=== PATIENT | female | born 1985 | race Caucasian/White ===

== ENCOUNTER 2016-07-08 07:46 | Outpatient (CLI) | payer MEDICAID | END 2016-07-08 07:47 | disposition home or self-care (01) | DX: Z36 Encounter for antenatal screening of mother (principal) ==

== ENCOUNTER 2016-07-31 09:52 | Emergency (ER) | payer MEDICAID ==
[2016-07-31] MEDS ORDERED: SODIUM CHLORIDE 0.9% 1,000 ML IV ONE (10:12)
[2016-07-31] MEDS ORDERED: ONDANSETRON 4 MG/2 ML VIAL IVP STA (10:12)
[2016-07-31] MEDS ORDERED: ONDANSETRON 4 MG/2 ML VIAL ONE (10:17)
[2016-07-31] MEDS ORDERED: POTASSIUM BICARB 25 MEQ TABLET PO STA (10:53)
[2016-07-31] MEDS ORDERED: POTASSIUM BICARB 25 MEQ TABLET PO ONE (10:59)
== END 2016-07-31 12:16 | disposition home or self-care (01) ==
DX: O99.612 Diseases of the digestive system complicating pregnancy, second trimester (principal); K52.9 Noninfective gastroenteritis and colitis, unspecified; O99.282 Endocrine, nutritional and metabolic diseases complicating pregnancy, second trimester; E86.0 Dehydration; E87.6 Hypokalemia; Z3A.22 22 weeks gestation of pregnancy
CPT/HCPCS: 36415; 80053; 81001; 83690; 85025; 96361; 96374; 99283; 99284; A9270

== ENCOUNTER 2016-08-15 11:33 | Outpatient (CLI) | payer MEDICAID | END 2016-08-15 11:34 | disposition home or self-care (01) | DX: Z36 Encounter for antenatal screening of mother (principal) ==

== ENCOUNTER 2016-08-27 09:24 | Outpatient (CLI) | payer MEDICAID | END 2016-08-27 09:25 | disposition home or self-care (01) | DX: Z36 Encounter for antenatal screening of mother (principal) ==

== ENCOUNTER 2016-09-10 08:47 | Outpatient (CLI) | payer MEDICAID | END 2016-09-10 08:48 | disposition home or self-care (01) | DX: O99.810 Abnormal glucose complicating pregnancy (principal) ==

== ENCOUNTER 2016-09-24 08:00 | Outpatient (CLI) | payer MEDICAID | END 2016-09-24 08:01 | disposition home or self-care (01) | DX: Z36 Encounter for antenatal screening of mother (principal) ==

== ENCOUNTER 2016-10-07 16:52 | Outpatient (CLI) | payer MEDICAID | END 2016-10-07 16:53 | disposition home or self-care (01) | LOC: LAB.R 16:52 | PROVIDERS: ATTEND Obstetrics & Gynecology | DX: N39.0 Urinary tract infection, site not specified (principal) | CPT/HCPCS: 87086 ==

== ENCOUNTER 2016-11-07 11:00 | Outpatient (CLI) | payer MEDICAID | END 2016-11-07 11:01 | disposition home or self-care (01) | LOC: LAB.R 11:00 | PROVIDERS: ATTEND Obstetrics & Gynecology | DX: Z36 Encounter for antenatal screening of mother (principal) | CPT/HCPCS: 87081 ==

== ENCOUNTER 2016-11-20 08:00 | Outpatient (CLI) | payer MEDICAID ==
[2016-11-21 15:19] LABS: BILIRUBIN,URINE NEGATIVE (NEGATIVE)
== END 2016-11-20 23:59 | disposition home or self-care (01) ==
LOC: LAB.R 08:00
PROVIDERS: ATTEND Obstetrics & Gynecology
DX: R82.99 Other abnormal findings in urine (principal)
CPT/HCPCS: 81001; 87086

== ENCOUNTER 2016-11-23 13:44 | Emergency (ER) | payer MEDICAID ==
[2016-11-23 13:50] VITALS: BP 127/80
[2016-11-23] MEDS ORDERED: AZITHROMYCIN 250 MG TABLET PO STA (14:13)
--- NOTE | 2016-11-23 14:15 | ED Physician Documentation ---
History of Present Illness - Stated complaint Stated Complaint: 38 WKS/FEMALE - Chief complaint Chief Complaint: General - History obtained from History obtained from: Patient - History of Present Illness Timing: Other (38 weeks with positive motion and no bleeding or cramping. She was exposed to chlamydia by the boyfriend who notified her last night.) Review of Systems Constitutional: denies: Fever, Chills GI: denies: Abdominal Pain, Nausea, Diarrhea : denies: Dysuria, Frequency PD PAST MEDICAL HISTORY - Past Medical History Cardiovascular: None Respiratory: None Neuro: None Endocrine/Autoimmune: None GI: None RADIO FREQUENCY ENGINEER: None : None HEENT: None Psych: None Musculoskeletal: None Derm: None - Past Surgical History Past Surgical History: Yes General: Appendectomy - Present Medications Home Medications: Ambulatory Orders Medication Instructions Recorded Confirmed Pnv No.122/Iron/Folic Acid 1 tab PO DAILY 11/23/16 11/23/16 [ Multi Tablet] - Allergies Allergies/Adverse Reactions: Allergies Allergy/AdvReac Type Severity Reaction Status Date / Time aspirin Allergy Severe Respiratory Verified 04/27/16 08:34 Penicillins Allergy Severe Rash Verified 04/27/16 08:34 - Social History Does the pt smoke?: No Smoking Status: Never smoker Does the pt drink ETOH?: No Does the pt have substance abuse?: Yes - Immunizations Immunizations are current?: Yes - POLST Patient has POLST: No PD ED PE NORMAL - Vitals Vital signs reviewed: Yes - General General: Alert and oriented X 3, No acute distress - Abdomen Abdomen: Soft, Non tender, Other (Gravid) - Neuro Neuro: Alert and oriented X 3, Normal speech - Psych Psych: Normal mood, Normal affect Results - Vitals Vitals: Vital Signs - 24 hr 11/23/16 13:47 Temperature 36.0 C L Heart Rate 88 Respiratory 18 Rate Blood Pressure 127/80 O2 Saturation 97 Oxygen O2 Source Room air Departure - Departure Disposition: 01 Home, Self Care Clinical Impression: Exposure to chlamydia Condition: Good Instructions: ED Chlamydia Female Follow-Up: Venus Connors DO [Provider Admit Priv/Credential] - Within 1 week
[2016-11-23] MEDS ORDERED: AZITHROMYCIN 250 MG TABLET PO ONE (14:16)
== END 2016-11-23 14:25 | disposition home or self-care (01) ==
LOC: ED 13:44
DX: O26.893 Other specified pregnancy related conditions, third trimester (principal); Z20.2 Contact with and (suspected) exposure to infections with a predominantly sexual mode of transmission; Z3A.38 38 weeks gestation of pregnancy
CPT/HCPCS: 87491; 87591; 99283; A9270

== ENCOUNTER 2016-11-30 16:29 | Inpatient (IN) | payer MEDICAID ==
[2016-11-30] MEDS ORDERED: SODIUM CHLORIDE FLUSH 0.9% 10 ML SYRINGE IVP PRN (17:06)
[2016-11-30] MEDS ORDERED: fentaNYL 100 MCG/2 ML VIAL IVP PRN (17:06)
--- NOTE | 2016-11-30 17:14 | HISTORY & PHYSICAL EXAMINATION ---
Admit History - Instructions [place]/Slash: -Left hand click circles element as positive or present. -Right hand click slashes element as negative or not present. - Visit Reason Visit Reason: Membranes rupture (Pt thinks that she ruptured at about 0130 early this AM. Dontae contractions.) - : 6 Parity: 5 Premature: 0 Ectopic: 0 : 0 Care: positive: [facility] Risk/History: positive: Labor induction (Pt has been ruptured for 16: 30 hours) Complications This : positive: Maternal drug use (Pt had a Positive UTOX for MJ 04/28/16) Smoking Status: Never smoker - Mother's Labs Mother's Blood Type: positive: O Mother's RH: positive: Positive GBS: positive: Group B Step Negative Rubella Status: positive: Immune - Other Maternal History Other Maternal History: Pt failed her 50 gm adn her 3 hour GTT was Positive fasting at 111. late inp her SO tested positive for Chmydia and recieved 1 gm Azithromycin. Meds/Allgy - Home Medications Home Medications: Ambulatory Orders Medication Instructions Recorded Confirmed Pnv No.122/Iron/Folic Acid 1 tab PO DAILY 11/23/16 11/23/16 [ Multi Tablet] - Allergies Allergies/Adverse Reactions: Allergies Allergy/AdvReac Type Severity Reaction Status Date / Time aspirin Allergy Severe Respiratory Verified 04/27/16 08:34 Penicillins Allergy Severe Rash Verified 04/27/16 08:34 Physical - Abdominal Exam Vital Signs: Temp Pulse Resp BP Pulse Ox 36.3 C L 85 17 130/83 H 97 11/30/16 16:47 11/30/16 16:47 11/30/16 16:47 11/30/16 16:47 11/30/16 16:47
[2016-11-30] MEDS ORDERED: OXYTOCIN/LACTATED RINGERS 250 ML IV SCH (18:00)
[2016-11-30] MEDS ORDERED: TERBUTALINE 1 MG/ML VIAL SUBQ SCH (18:00)
[2016-11-30 18:22] LABS: BASOPHILS # (AUTO) 0.1 10^3/uL (0.0-0.1); BASOPHILS % (AUTO) 0.4 %; EOSINOPHILS # (AUTO) 0.2 10^3/uL (0.0-0.7); EOSINOPHILS % (AUTO) 1.2 %; HCT - HEMATOCRIT 37.3 % (37.0-47.0); HGB - HEMOGLOBIN 12.3 g/dL (12.0-16.0); LYMPHOCYTES % (AUTO) 19.4 %; MEAN CORPUSCULAR HEMOGLOBIN 28.9 pg (27.0-31.0); MEAN CORPUSCULAR VOLUME 87.6 fL (81.0-99.0); MONOCYTES # (AUTO) 1.1 10^3/uL (0.0-1.0); MONOCYTES % (AUTO) 7.1 %; NEUTROPHILS % (AUTO) 71.9 %; RED BLOOD COUNT 4.26 10^6/uL (4.20-5.40); RED CELL DISTRIBUTION WIDTH 13.3 % (12.0-15.0); UNCORRECTED WHITE BLOOD COUNT 15.2 x10^3/uL; WHITE BLOOD COUNT 15.2 x10^3/uL (4.8-10.8)
[2016-11-30] MEDS: LACTATED RINGERS 1,000 ML IV SCH ×2 (18:40→22:59)
[2016-11-30] MEDS: SODIUM CHLORIDE FLUSH 0.9% 10 ML SYRINGE IVP SCH (18:41)
[2016-11-30] MEDS ORDERED: fent/BUPIV 2 MCG/0.125% 250 ML EP ONE (22:52)
[2016-11-30] MEDS ORDERED: ROPIVACAINE 0.2% PF 10 ML VIAL EPI ONE (23:00)
[2016-11-30] MEDS ORDERED: NALOXONE 0.4 MG/ML VIAL IVP PRN (23:28)
[2016-11-30] MEDS ORDERED: LACTATED RINGERS 500 ML IV SCH (23:28)
[2016-11-30] MEDS ORDERED: ePHEDrine 50 MG/ML AMP IVP PRN (23:28)
[2016-11-30] MEDS ORDERED: ONDANSETRON 4 MG/2 ML VIAL IVP PRN (23:28)
[2016-11-30] MEDS ORDERED: NALBUPHINE 20 MG/ML AMP IVP PRN (23:28)
[2016-11-30] MEDS ORDERED: diphenhydrAMINE INJ 50 MG/ML VIAL IVP PRN (23:28)
[2016-11-30] MEDS ORDERED: fent/BUPIV 2 MCG/0.125% 250 ML EP PRN (23:28)
[2016-11-30] MEDS ORDERED: METOCLOPRAMIDE 10 MG/2 ML VIAL IVP PRN (23:28)
--- NOTE | 2016-12-01 00:30 | PROVIDER PROGRESS NOTE ---
Labor Progress Note - Uterine Monitoring Contraction Intensity: positive: Moderate to strong Uterine Resting Tone: positive: Soft - Monitoring Monitor Mode: positive: External ultrasound Heart Rate Baseline: 130 Heart Rate Variability: positive: Moderate (6-25 bmp) Accelerations: positive: Present, 15x15 Decelerations: positive: None Strip Review: positive: Category I - Vaginal Exam Dilation (in cm): 5 Station: Ballotable Cervical Position: Midposition (Head is not well applied. TAUS showed head down adn a full bladder. will insert bello and leave in.)
--- NOTE | 2016-12-01 01:28 | PROVIDER PROGRESS NOTE ---
Labor Progress Note - Uterine Monitoring Uterine Monitoring Mode: positive: IUPC Contraction Frequency (min/apart): 2.5 Contraction Intensity: positive: Strong Uterine Resting Tone: positive: Soft Other Uterine Monitoring: IUPC palced 50 mvu per contraction. - Monitoring Monitor Mode: positive: External ultrasound Heart Rate Baseline: 135 Heart Rate Variability: positive: Moderate (6-25 bmp) Accelerations: positive: Absent Decelerations: positive: Early Strip Review: positive: Category I - Vaginal Exam Dilation (in cm): 5 Effacement (%): 80 Station: -2 Cervical Position: Midposition - Labor Progress Note Labor Progress Note/Additional Text: Unable to monitor contractions externaly. IUPC placed. Advance pit
[2016-12-01] MEDS: ONDANSETRON 4 MG/2 ML VIAL IVP PRN ×3 (01:39→10:04)
[2016-12-01] MEDS: LACTATED RINGERS 1,000 ML IV SCH (02:37)
[2016-12-01] MEDS ORDERED: TERBUTALINE 1 MG/ML VIAL SUBQ SCH (03:00)
[2016-12-01] MEDS ORDERED: ONDANSETRON 4 MG/2 ML VIAL IVP ONE (04:00)
[2016-12-01] MEDS ORDERED: LIDOCAINE 2%-EPI 1:100000 20 ML MDV SUBQ ONE (04:00)
[2016-12-01] MEDS ORDERED: MORPHINE PF 5 MG/10 ML AMP EP ONE (04:00)
[2016-12-01] MEDS ORDERED: fentaNYL 100 MCG/2 ML VIAL IVP ONE (04:00)
[2016-12-01] MEDS ORDERED: SODIUM BICARBONATE ABBOJECT 4.2% 5 MEQ/10 ML SYRINGE IVP ONE (04:00)
[2016-12-01] MEDS ORDERED: PROPOFOL 200 MG/20 ML VIAL IVP ONE (04:00)
[2016-12-01] MEDS ORDERED: SODIUM CHLORIDE 0.9% 10 ML VIAL IV ONE (04:00)
[2016-12-01] MEDS ORDERED: OXYTOCIN 10 UNIT/ML VIAL IV ONE (04:00)
[2016-12-01] MEDS ORDERED: ceFAZolin 1 GM VIAL IV ONE (04:00)
[2016-12-01] MEDS ORDERED: MIDAZOLAM 2 MG/2 ML VIAL IVP ONE (04:00)
[2016-12-01] MEDS ORDERED: LACTATED RINGERS 1,000 ML IV ONE (04:45)
[2016-12-01] MEDS ORDERED: OXYTOCIN/LACTATED RINGERS 250 ML IV SCH (04:57)
[2016-12-01] MEDS ORDERED: ONDANSETRON 4 MG/2 ML VIAL IVP PRN (04:57)
[2016-12-01] MEDS ORDERED: diphenhydrAMINE 25 MG CAPSULE PO PRN (04:57)
[2016-12-01] MEDS ORDERED: LACTATED RINGERS 1,000 ML IV SCH (05:00)
[2016-12-01] MEDS ORDERED: IBUPROFEN 800 MG TABLET PO SCH (05:00)
--- NOTE | 2016-12-01 05:06 | OPERATIVE REPORT ---
Operative Report - General Admit Date: 11/30/16 Procedure Date: 12/01/16 Planned Procedure: STAT C/S Pre-Op Diagnosis: 39.2 weeks, distress Post Op Diagnosis: tight nucal cord, LOP - Procedure Note Primary Surgeon: Lalo Moore MD Secondary Surgeon: Lorena GRIMM Anesthesia Provider: Jet hope Anesthesia Technique: Epidural, Moderate sedation Pathology: Placenta Estimated Blood Loss (in cc): 650 Complications: None
--- NOTE | 2016-12-01 05:28 | XRAY Preliminary Report ---
Exam: XR Abdomen 1 View IMPRESSION: No radiopaque foreign objects noted. RADIA The call report notification system was initiated by Dr. Terrance Ivory at 05:24 hrs on 12/01/16. The above findings were discussed with provider Ariela Edwards, Nurse, by Dr. Terrance Ivory at 05:26 hrs on 12/01/16. SITE ID: [id number]
--- NOTE | 2016-12-01 05:30 | XRAY Report ---
EXAM: ABDOMEN RADIOGRAPHY EXAM DATE: 12/01/2016 05:14 AM. CLINICAL HISTORY: EMERGENCY C SECTION SHARPS SURVEILLANCE. COMPARISON: None. TECHNIQUE: 1 view. FINDINGS: Bowel Gas Pattern: Shadow from the gravid uterus projects over the lower abdomen and pelvis. Other: Epidural catheter noted. No radiopaque foreign object projects over the abdomen or pelvis. IMPRESSION: No radiopaque foreign objects noted. RADIA The call report notification system was initiated by Dr. Terrance Ivory at 05:24 hrs on 12/01/16. The above findings were discussed with provider Nurse Liz, by Dr. Terrance Ivory at 05:26 hrs on 12/01/16. Referring Provider Line: [phone] SITE ID: [id number]
[2016-12-01] MEDS ORDERED: ACETAMINOPHEN 1,000 MG/100 ML 100 ML IV SCH (05:54)
[2016-12-01] MEDS: SODIUM CHLORIDE FLUSH 0.9% 10 ML SYRINGE IVP SCH (06:37)
[2016-12-01] MEDS: ACETAMINOPHEN 500 MG TABLET PO SCH ×3 (07:04→21:14)
[2016-12-01] MEDS: PROMETHAZINE 25 MG SUPP PR PRN ×2 (11:27→17:46)
[2016-12-01] MEDS: oxyCODONE 5 MG TABLET PO PRN ×2 (13:31→22:08)
[2016-12-02] MEDS: ACETAMINOPHEN 500 MG TABLET PO SCH ×3 (05:51→21:49)
[2016-12-02 06:11] LABS: LYMPHOCYTES % (AUTO) 15.7 %; MEAN PLATELET VOLUME 8.2 fL (7.9-10.8)
[2016-12-02 06:14] LABS: BASOPHILS % (AUTO) 0.3 %; EOSINOPHILS # (AUTO) 0.2 10^3/uL (0.0-0.7); EOSINOPHILS % (AUTO) 0.9 %; HCT - HEMATOCRIT 30.1 % (37.0-47.0); LYMPHOCYTES # (AUTO) 2.6 10^3/uL (1.5-3.5); MEAN CORPUSCULAR HEMOGLOBIN 29.2 pg (27.0-31.0); MEAN CORPUSCULAR HGB CONC 33.3 g/dL (32.0-36.0); MEAN CORPUSCULAR VOLUME 87.8 fL (81.0-99.0); MONOCYTES # (AUTO) 1.2 10^3/uL (0.0-1.0); MONOCYTES % (AUTO) 6.9 %; NEUTROPHILS # (AUTO) 12.7 10^3/uL (1.5-6.6); NEUTROPHILS % (AUTO) 76.2 %; RED BLOOD COUNT 3.43 10^6/uL (4.20-5.40); RED CELL DISTRIBUTION WIDTH 13.9 % (12.0-15.0); UNCORRECTED WHITE BLOOD COUNT 16.7 x10^3/uL; WHITE BLOOD COUNT 16.7 x10^3/uL (4.8-10.8)
[2016-12-02] MEDS: oxyCODONE 5 MG TABLET PO PRN ×4 (08:36→20:39)
--- NOTE | 2016-12-02 08:48 | PROVIDER PROGRESS NOTE ---
Subjective - General Admit Date: 11/30/16 Procedure Date: 12/01/16 Post Op Days: 1 Procedure Performed: PLTC/S - Review of Systems Wound/Incisions: positive: Healing well (no erythema Dressing removed) General: positive: No symptoms (Pain 5/10 but notes adiquit pain control. moving easly with smile on face. Pt is allergic to ASA but takes motrin with out any problems.) Objective - Patient Data Reviewed Vital Signs: Yes Vital Signs: Vital Signs x48h Temp Pulse Resp BP Pulse Ox 12/02/16 07:56 36.4 C L 64 18 124/78 99 12/02/16 04:03 36.7 C 62 18 120/78 99 Weight: Weight 11/30/16 12/01/16 12/02/16 23:59 23:59 23:59 Weight (kg) 95.708 kg Intake & Output: Intake and Output Totals x24h 11/30/16 12/01/16 12/02/16 23:59 23:59 23:59 Intake Total 1374 5679 Output Total 1475 Balance 1374 4204 - Lab Results Lab Results: 12/02/16 05:43 Other Lab Results: Lab Results x24hrs 12/02/16 Range/Units 05:43 WBC 16.7 H (4.8-10.8) x10^3/uL RBC 3.43 L (4.20-5.40) 10^6/uL Hgb 10.0 L (12.0-16.0) g/dL Hct 30.1 L (37.0-47.0) % MCV 87.8 (81.0-99.0) fL MCH 29.2 (27.0-31.0) pg MCHC 33.3 (32.0-36.0) g/dL RDW 13.9 (12.0-15.0) % Plt Count 214 (130-450) 10^3/uL MPV 8.2 (7.9-10.8) fL Neut # 12.7 H (1.5-6.6) 10^3/uL Lymph # 2.6 (1.5-3.5) 10^3/uL [place] # 1.2 H (0.0-1.0) 10^3/uL Eos # 0.2 (0.0-0.7) 10^3/uL Baso # 0.0 (0.0-0.1) 10^3/uL Absolute Nucleated RBC 0.01 x10^3/uL Nucleated RBCs 0.0 /100WBC - Current Medications Current Medications: Current Medications Generic Name Dose Route Start Last Admin Trade Name Freq PRN Reason Stop Dose Admin Acetaminophen 1,000 mg 12/01/16 05:00 12/02/16 05:51 Tylenol PO 1,000 mg Q8H JESSENIA Administration Metoclopramide HCl 10 mg 11/30/16 23:28 12/01/16 07:59 Reglan Inj IVP 10 mg Q6HR PRN Administration Nausea / Vomiting Oxycodone HCl 5 mg 12/01/16 04:57 12/02/16 08:36 Roxicodone PO 5 mg Q4HR PRN Administration PAIN Promethazine HCl 25 mg 12/01/16 10:50 12/01/16 17:46 Phenergan Supp SC 25 mg TID PRN Administration Nausea / Vomiting Sodium Chloride 10 ml 11/30/16 22:00 12/01/16 06:37 Normal Saline Flush 0.9% IVP Not Given Q8HR JESSENIA - Physical Exam Wound/Incisions: positive: Healing well General Appearance: positive: No acute distress, Alert Respiratory: positive: Chest non-tender, No respiratory distress, Breath sounds nml Cardiovascular: positive: Regular rate & rhythm, No murmur, No gallop Abdomen: positive: Non-tender, No organomegaly, Mass (U-2). negative: Guarding , Rebound Extremities: positive: Non-tender. negative: Calf tenderness, Rashida's sign/ cords Neurologic/Psychiatric: positive: Oriented x3 Impression/Plan - Problem List Problem List: S/P STAT LTC/S recovering well will start Colace and Motrin.
[2016-12-02] MEDS: SODIUM CHLORIDE FLUSH 0.9% 10 ML SYRINGE IVP SCH (09:07)
[2016-12-02] MEDS: DOCUSATE SODIUM 100 MG CAPSULE PO SCH ×2 (09:28→20:39)
[2016-12-02] MEDS: IBUPROFEN 800 MG TABLET PO PRN ×2 (09:28→17:47)
--- NOTE | 2016-12-02 09:55 | OPERATIVE REPORT ---
DATE OF SURGERY: 12/01/2016 00:00:00 PREOPERATIVE DIAGNOSIS: 1. A 39.2 weeks. 2. Prolonged rupture of membranes. 3. distress. POSTOPERATIVE DIAGNOSIS: 1. A 39.2 weeks. 2. Prolonged rupture of membranes. 3. distress. 4. Tight nuchal cord. 5. Left occiput posterior. NAME OF PROCEDURE: STAT Primary low transverse caesarean section. SURGEON: Lalo Moore MD. VERTICAL PUNCH OPERATOR: Lorena Radford CNM. ANESTHESIA: Epidural with IV sedation. ESTIMATED BLOOD LOSS: 650 mL. COMPLICATIONS: None. SPECIMENS TO PATHOLOGY: Placenta. PRESENTING HISTORY: The patient is a 31-year-old G6, P4 female who ruptured roughly 25-1/2 hours prior. She presented to Labor and Delivery on the evening of the . Because of her membranes being ruptured she was initiated with Pitocin, an epidural was placed. She was allowed to labor, but at roughly 7 cm she developed decelerations going down to the 90's and 70's. This did not respond to position change, knee chest, IV fluids, stopping the Pitocin or terbutaline. For this reason she was taken back for a stat . Verbal consent was obtained from the patient. However, a signed consent form was not. Risks and benefits were explained to the patient including those, but not limited to bleeding, infection, injury to pelvic organs which include the uterus , tubes, ovaries, bowel, bladder and ureters. She is aware of the potential for DVT with PE, as well as postoperative adhesions which could cause pain, bowel obstruction, infertility. PROCEDURE: The patient was taken to the operating room at which time she was placed in the supine position. Epidural was in place. She was prepped and draped in the usual fashion and a rapid time-out was performed. At this point a Pfannenstiel incision was carried down through the subcutaneous tissue to the fascia, the fascia incised transversely. At this point the patient was having difficulty with discomfort so IV sedation was initiated with propofol. The rectus was split along the midline, the peritoneum was entered high, care was taken to avoid injury to bowel or bladder. At this point a bladder flap was developed using both blunt and sharp dissection and a low transverse uterine incision was accomplished using #10 blade and bandage scissors. The head of the infant was noted to be right occiput posterior. Upon delivery there was a very tight nuchal cord which was difficult to reduce. This was reduced and the was delivered. The infant was handed to the accounting teacher who was standing by. At this point cord blood gas samples were attempted to be obtained. A segment of cord was set aside. The placenta was manually delivered. The uterus exterior was wrapped in moist lap and cleansed the interior portion with dry lap. The low transverse uterine incision was then closed using running locking suture of #0 Vicryl with an imbricating layer of 0 Vicryl. A moist lap was placed over this. The cul-de-sac was suctioned clear of any clot. The estimated blood loss was accomplished at this time and felt to be 650 mL. At this point the uterus is delivered back in the abdominal cavity, the gutters are irrigated and the incision was inspected. There was evidence of some bleeding along the midline so additional sutures of 0 Vicryl were placed with good results. There was no further bleeding. The peritoneum was closed utilizing 2-0 Vicryl and then the fascia was closed using #0 PDS running suture. This was irrigated and then the subcutaneous tissue was closed using 2- 0 Vicryl and the incision itself closed in 4-0 Monocryl subcuticular. This was then dressed with Mastisol, steri-strips, as well as an occlusive dressing. The patient tolerated procedure well. At this point an x-ray was obtained to rule out any retained instruments or sponges because these counts were not accomplished prior to initiating procedure. JOB #: [id number] EXT JOB #:[id number] JESSICA
[2016-12-03] MEDS: oxyCODONE 5 MG TABLET PO PRN ×3 (00:12→08:04)
[2016-12-03] MEDS: ACETAMINOPHEN 500 MG TABLET PO SCH (06:24)
[2016-12-03] MEDS: DOCUSATE SODIUM 100 MG CAPSULE PO SCH (10:45)
[2016-12-03] MEDS: IBUPROFEN 800 MG TABLET PO PRN (10:45)
--- NOTE | 2016-12-03 11:22 | PROVIDER PROGRESS NOTE ---
Subjective - General Admit Date: 11/30/16 Procedure Date: 12/01/16 Post Op Days: 2 Procedure Performed: PLTC/S - Review of Systems Wound/Incisions: positive: Healing well (no erythema) General: positive: No symptoms (Pain 3/10 but notes adiquit pain control. Moving easly with smile on face. Pt decided not to breast feed. Anticipates going home.) HEENT: positive: No symptoms Pulmonary: positive: No symptoms Cardiovascular: positive: No symptoms Gastrointestinal: positive: No symptoms Objective - Patient Data Reviewed Vital Signs: Yes Vital Signs: Vital Signs x48h Temp Pulse Resp BP BP Pulse Ox 12/03/16 07:58 36.6 C 72 17 108/76 98 12/03/16 03:47 36.8 C 67 16 122/80 98 Intake & Output: Intake and Output Totals x24h 12/01/16 12/02/16 12/03/16 23:59 23:59 23:59 Intake Total 5679 Output Total 1475 Balance 4204 - Lab Results Lab Results: 12/02/16 05:43 - Current Medications Current Medications: Current Medications Generic Name Dose Route Start Last Admin Trade Name Freq PRN Reason Stop Dose Admin Acetaminophen 1,000 mg 12/01/16 05:00 12/03/16 06:24 Tylenol PO 1,000 mg Q8H JESSENIA Administration Docusate Sodium 100 mg 12/02/16 09:00 12/03/16 10:45 Colace 100mg Capsule PO 100 mg DAILY JESSENIA Administration Ibuprofen 800 mg 12/02/16 08:45 12/03/16 10:45 Motrin PO 800 mg BID PRN Administration PAIN Metoclopramide HCl 10 mg 11/30/16 23:28 12/01/16 07:59 Reglan Inj IVP 10 mg Q6HR PRN Administration Nausea / Vomiting Oxycodone HCl 5 mg 12/01/16 04:57 12/03/16 08:04 Roxicodone PO 5 mg Q4HR PRN Administration PAIN Promethazine HCl 25 mg 12/01/16 10:50 12/01/16 17:46 Phenergan Supp [place] 25 mg TID PRN Administration Nausea / Vomiting Sodium Chloride 10 ml 11/30/16 22:00 12/02/16 09:07 Normal Saline Flush 0.9% IVP Not Given Q8HR JESSENIA - Physical Exam Wound/Incisions: positive: Healing well, Dressing dry and intact. negative: Erythema General Appearance: positive: No acute distress, Alert Respiratory: positive: Chest non-tender, No respiratory distress, Breath sounds nml Cardiovascular: positive: Regular rate & rhythm, No murmur, No gallop Abdomen: positive: Non-tender, Nml bowel sounds, Mass (U-3) Extremities: negative: Pedal edema, Calf tenderness, Rashida's sign/cords Neurologic/Psychiatric: positive: Oriented x3, Motor nml Impression/Plan - Problem List Problem List: POD #2 doing well Pt is not breast feeding. Discharge meds: Percocet 5/325 # 15 Motrin 800 mg Colace 100 mg Pt wants Mirena at 6 week visit RTC 1-2 weeks
--- NOTE | 2016-12-03 11:59 | Discharge Plan ---
Discharge Plan Disposition: Home, Self Care Condition: Good Diet: Regular Activity Restrictions: Pelvic rest Shower Restrictions: No Driving Restrictions: Yes (1 week) Weight Bearing: Full Weight No Smoking: If you smoke, Please STOP! Call for help. Follow-up with: Lalo Moore MD [Provider Admit Priv/Credential] -
[2016-12-03 12:07] VITALS: BP 153/94
--- NOTE | 2016-12-03 12:56 | Labor Flowsheet ---
Labor Flowsheet Datetime Report Generated by CPN: 12/03/2016 12:55 Datetime: 12/03/2016 12:07 VITAL SIGNS NBP Sys/Lisa/Mean (mmHg): 153 : 94 : 109 Pulse: 58 LaborFlag: Labor Datetime: 12/03/2016 12:06 Temperature (F): 97.5 Temperature (C): 36.4 Temperature (C): 36.4 Datetime: 12/02/2016 16:25 SpO2 (%): 99 Datetime: 12/01/2016 03:12 UTERINE ACTIVITY Monitor Mode: Internal Frequency (min): 2-4 Duration (sec): 30-90 Pattern: Normal: <= 5 Contractions in 10 Minutes Resting Tone (Palpate): Relaxed Resting Tone IUP (mmHg): 15 Intensity IUP (mmHg): 45 [place] Units (mmHg): 135 ASSESSMENT A Monitor Mode: Internal Scalp Electrode FHR Baseline Rate : 120 Variability: Moderate 6-25 bpm Accelerations: None Decelerations: Variable Category: Category II Patient Care Comments: left L_D unit for the OR via bed Anesthesia Comments: epidural remains in place Datetime: 12/01/2016 03:03 Plan of Care: C/S Delivery Datetime: 12/01/2016 03:02 Patient Position/Activity: Hands-Knees Datetime: 12/01/2016 03:00 PAIN Pain Scale: 0 Tocolytics: Terbutaline 0.25mg Subcutaneous Datetime: 12/01/2016 02:56 Monitor Interventions for FHR: FSE Applied Datetime: 12/01/2016 02:55 VAGINAL EXAM Dilatation (cm): 7.0 Effacement (%): 100 Station: 1 Exam by: Dr. Giem Datetime: 12/01/2016 02:49 MEDICATIONS Pitocin (milliunits): Discontinued Datetime: 12/01/2016 02:00 Oxygen Method: Room Air Datetime: 12/01/2016 01:59 Actions for Decelerations: Oxygen Applied Comments: 10L oxygen applied via non-rebreather mask Datetime: 12/01/2016 01:43 PATIENT CARE IV/Blood Work: IV Bolus Started Datetime: 12/01/2016 01:41 Antiemetics/Antacids: Zofran (mg) @ 4 Datetime: 12/01/2016 01:20 Monitor Interventions for UA: IUPC Inserted Datetime: 12/01/2016 01:18 COMMUNICATION Communication: Provider at Bedside Provider Notified (Name): Dr. Giem Datetime: 12/01/2016 01:16 Notification Reason: Other Communication Comments: requested provider place IUPC d/t poor contraction tracing Datetime: 12/01/2016 01:00 Quality: Moderate Anesthesia Level Check: T6- Xyphoid Datetime: 12/01/2016 00:45 Contraction Comments: per pt's report contractions roughly 5 minutes apart Datetime: 12/01/2016 00:30 I/O Interventions: Ignacio Cath Inserted Datetime: 11/30/2016 23:11 Epidural Procedure: Loading Dose Datetime: 11/30/2016 23:00 TEACHING Instructional Method: Verbal Pain Management: Epidural Datetime: 11/30/2016 22:58 PROCEDURE TIME OUT Procedure Verify: Correct Patient Identity; Correct Side and Site are Marked; Accurate Procedure Co nsent Form; Agreement on Procedure to be Done; Correct Patient Position; Relevant Images and Results are Properly Labeled and Displayed; Addressed Need to Administer Antibiotics or Fluids for Irrigation ; Safety Precautions Based on Patient History or Medication Use ANESTHESIA Anesthesia Plans: Epidural Epidural Positioning: Sitting Datetime: 11/30/2016 22:45 FHR Baseline Changes: No Baseline Change Pain Presence: Intermittent Pain Type: Cramping Pain Location: Abdomen Datetime: 11/30/2016 22:00 Respirations: 16 Pain Assessment Comments: pt continues to decline epidural at this time Datetime: 11/30/2016 21:50 Vital Sign Comments: pt denies blurred vision Datetime: 11/30/2016 21:49 Vaginal Bleeding: None Cervix, Consistency: Soft Cervix, Position: Posterior Datetime: 11/30/2016 21:10 Pain Relief Measures: Comfort Measures Pain Coping: Talking Through Contractions; Breathing Through Contractions Comfort Measures: Breathing/Relaxation Datetime: 11/30/2016 21:00 Pitocin Checklist: At Least 1 Acceleration of 15 bpm x 15 Seconds in 30 Minutes or Adequate Variabi lity; No More than 1 Late Deceleration Occurred in Past 30 Minutes; No More than 2 Variable Decelerat ions > 60 Seconds in Duration and decreasing >60 bpm in 30 minutes; No More than 5 Uterine Contractio ns in 10 Minutes for any 20 Minute Interval; Uterus Palpates Soft between Contractions Datetime: 11/30/2016 20:00 MATERNAL ASSESSMENT Level of Consciousness: Fully Conscious DTR's/Clonus: DTRs 2+; No Clonus Headache: Denies Breath Sounds, Left: Clear and Equal Breath Sounds, Right: Clear and Equal Datetime: 11/30/2016 18:30 Stage of : Labor
--- NOTE | 2016-12-06 03:39 | DISCHARGE SUMMARY ---
DATE OF ADMISSION: 11/30/2016 DATE OF DISCHARGE: 12/03/2016 ADMITTING DIAGNOSES 1. Term cyesis. 2. Prolonged ruptured membranes. DISCHARGE DIAGNOSES 1. Term cyesis. 2. Prolonged ruptured membranes. 3. decelerations. PROCEDURES 1. Pitocin induction. 2. Epidural. 3. Intrauterine pressure catheter. 4. scalp electrode. 5. Primary low-transverse section. IDENTIFICATION: The patient is a 31-year-old, G6, P5 female who presents with potentially ruptured m embranes at 1:30 in the morning on the . She did not present to Labor and Delivery until the aft ernoon about 1600 hours. At that point, she was noted to be frankly positive for nitrazine, as well as positive pooling. Because of the history of prolonged ruptured membranes, it was decided to initi ate Pitocin immediately. LABORATORIES: On admission, white count was 15.2 thousand, hemoglobin was 12.3, hematocrit 37, plate lets were 274. On the first day postoperatively, her hemoglobin had dropped to 10 with hematocrit of 30.1. Platelets were 214. White count was 16.7. HOSPITAL COURSE: The patient was admitted, and because of lack of active labor, Pitocin was initiate d. A pelvic examination was deferred, in that it was felt that this could potentially introduce bact eria. She did attain contractions. She had an epidural placed and was checked; at that point, she w as roughly 6 cm. She progressed to 7 cm but at this point developed decelerations that would go down to the 90s, as well as 70s. She was only 7 cm, and it was decided to proceed on to a primary low tr ansverse section. This was performed without incident. At delivery, a live was note d to be vertex with a nuchal cord, which was tight and very difficult to reduce. The remainder of th e progressed without incident. Her postoperative course has been doing well. Her diet is advanced, she is eating a regular diet. She is being discharged to home today on medications of: 1. Motrin. 2. Percocet. 3. Colace. She has been instructed to watch for signs of a breast infection, even though she will not be breastf eeding. She has also been instructed to remain at pelvic rest for the next 6 weeks. She is to follo w up in the clinic in 1-2 weeks, and then again at 6 weeks, at which time a Mirena will be placed for contraception. JOB #: [id number] EXT JOB #:[id number]
== END 2016-12-03 12:40 | disposition home or self-care (01) | DRG 765 ==
LOC: WFO 16:29 → OB 16:32 → WFO 17:16
PROVIDERS: ADMIT Obstetrics & Gynecology; ATTEND Obstetrics & Gynecology
PROC: 10D00Z1 Extraction of Products of Conception, Low, Open Approach (ICD-10-PCS; principal; 2016-12-01 03:30)
DX: O42.02 Full-term premature rupture of membranes, onset of labor within 24 hours of rupture (principal); O99.324 Drug use complicating childbirth; O98.32 Other infections with a predominantly sexual mode of transmission complicating childbirth; O76 Abnormality in fetal heart rate and rhythm complicating labor and delivery; O69.1XX0 Labor and delivery complicated by cord around neck, with compression, not applicable or unspecified; O64.0XX0 Obstructed labor due to incomplete rotation of fetal head, not applicable or unspecified; F12.90 Cannabis use, unspecified, uncomplicated; A56.8 Sexually transmitted chlamydial infection of other sites; Z3A.39 39 weeks gestation of pregnancy; Z37.0 Single live birth
CPT/HCPCS: 36415; 74000; 80306; 85025; 87491; 87591; 99213

== ENCOUNTER 2017-02-23 22:03 | Emergency (ER) | payer MEDICAID ==
[2017-02-23 22:22] VITALS: BP 159/87
[2017-02-23 22:26] LABS: BILIRUBIN,URINE NEGATIVE (NEGATIVE)
[2017-02-23 22:28] LABS: HCG UR QUAL NEGATIVE; UA w/ MICROSCOPIC CHARGE YES
[2017-02-23 22:42] LABS: UR CULTURE IF IND INDICATED; WBC,URINE >25 /HPF (0-5)
[2017-02-23] MEDS ORDERED: ACETAMINOPHEN 500 MG TABLET PO STA (22:50)
[2017-02-23] MEDS ORDERED: SULFAMETH/TRIMETH DS 800/160 MG TABLET PO STA (22:50)
[2017-02-23] MEDS ORDERED: ONDANSETRON ODT 4 MG TABLET TL STA (22:50)
[2017-02-23] MEDS ORDERED: PHENAZOPYRIDINE 100 MG TABLET PO STA (22:50)
--- NOTE | 2017-02-23 22:54 | ED Physician Documentation ---
PD HPI FEMALE - Stated complaint Stated Complaint: FEMALE - Chief complaint Chief Complaint: Abd Pain - History obtained from History obtained from: Patient - History of Present Illness Timing - onset: Yesterday Timing - details: Gradual onset, Still present Associated symptoms: Abdominal pain, Back pain, Urinary frequency, Hematuria Contributing factors: No: Similar symptoms before: Work up / diagnostics, Treatment Recently seen: Not recently seen - Additional information Additional information: Patient is a 31 year old female with a history of recurrent uti's who is presenting to the emergency department for dysuria, hematuria and left sided flank pain. Patient states that her symptoms have been going on for the last few days and has become progressively worse. Patient complains of mild fever and nausea but denies any vomiting and is able to drink water without any difficulty. Review of Systems Constitutional: reports: Fever, Chills. denies: Myalgias Eyes: denies: Decreased vision, Photophobia Ears: denies: Ear pain, Drainage/discharge Nose: denies: Congestion Throat: denies: Oral lesions / sores, Sore throat Cardiac: denies: Chest pain / pressure, Palpitations Respiratory: denies: Cough, Wheezing GI: reports: Abdominal Pain, Nausea. denies: Vomiting, Constipation, Diarrhea : reports: Frequency, Hematuria. denies: Vaginal bleeding Skin: denies: Rash, Lesions Musculoskeletal: reports: Back pain. 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 : None HEENT: None Psych: None Musculoskeletal: None Derm: None - Past Surgical History Past Surgical History: Yes General: Appendectomy - Present Medications Home Medications: Ambulatory Orders Medication Instructions Recorded Confirmed Pnv No.122/Iron/Folic Acid 1 tab PO DAILY 11/23/16 11/23/16 [ Multi Tablet] Ondansetron Odt [Zofran] 4 mg TL Q6H PRN #20 tablet 02/23/17 Phenazopyridine HCl [Pyridium] 200 mg PO TID PRN #6 tablet 02/23/17 Sulfamethox/Trimeth 800/160 1 each PO BID #14 tablet 02/23/17 [Bactrim Ds 800/160] - Allergies Allergies/Adverse Reactions: Allergies Allergy/AdvReac Type Severity Reaction Status Date / Time aspirin Allergy Severe Respiratory Verified 02/23/17 22:20 Penicillins Allergy Severe Rash Verified 02/23/17 22:20 - Social History Does the pt smoke?: No Smoking Status: Never smoker Does the pt drink ETOH?: No Does the pt have substance abuse?: Yes - Immunizations Immunizations are current?: Yes - POLST Patient has POLST: No PD ED PE NORMAL - Vitals Vital signs reviewed: Yes - General General: Alert and oriented X 3, No acute distress, Well developed/nourished - HEENT HEENT: Atraumatic, PERRL, Moist mucous membranes - Neck Neck: Supple, no meningeal sign - Cardiac Cardiac: RRR, No murmur - Respiratory Respiratory: No respiratory distress - Abdomen Abdomen: Soft, Non distended - Derm Derm: Normal color, Warm and dry, No rash - Extremities Extremities: No deformity, No tenderness to palpate - Neuro Neuro: Alert and oriented X 3, No motor deficit, No sensory deficit - Psych Psych: Normal mood, Normal affect PD ED PE EXPANDED - Back Back: CVA TTP left Results - Vitals Vitals: Vital Signs - 24 hr 02/23/17 22:15 Temperature 38.1 C H Heart Rate 90 Respiratory 17 Rate Blood Pressure 159/87 H O2 Saturation 96 Oxygen O2 Source Room air - Labs Labs: Laboratory Tests 02/23/17 22:00 Urine Color YELLOW Urine Clarity CLOUDY Urine pH 6.0 Ur Specific [place] 1.015 Urine Protein 100 H Urine Glucose (UA) NEGATIVE Urine Ketones NEGATIVE Urine Occult Blood LARGE H Urine Nitrite NEGATIVE Urine Bilirubin NEGATIVE Urine Urobilinogen 0.2 (NORMAL) Ur Leukocyte Esterase SMALL H Urine RBC 11-25 H Urine WBC >25 H Urine WBC Clumps PRESENT Ur Squamous Epith Cells FEW Squamous Urine Bacteria Few Ur Microscopic Review INDICATED Urine Culture Comments INDICATED Urine HCG, Qual NEGATIVE PD MEDICAL DECISION MAKING - ED course Complexity details: reviewed old records, reviewed results, re-evaluated patient , considered differential, d/w patient ED course: Patient was seen and examined at bedside. Patient's urine was collected. patient's findings were consistent with pyelonephritis. Patient was able to tolerate PO without difficulty and was appropriate for outpatient follow up and care. Departure - Departure Disposition: 01 Home, Self Care Clinical Impression: Pyelonephritis Condition: Good Instructions: Pyelonephritis Dc Follow-Up: primary,care provider [Other] - As Needed Prescriptions: Ondansetron Odt [Zofran] 4 mg TL Q6H PRN #20 tablet PRN Reason: Nausea / Vomiting Phenazopyridine HCl [Pyridium] 200 mg PO TID PRN #6 tablet PRN Reason: dysuria Sulfamethox/Trimeth 800/160 [Bactrim Ds 800/160] 1 each PO BID #14 tablet Comments: Your symptoms today are being caused by a kidney infection. You had your first dose of antibiotics and will need to be on it for two weeks. You should take the zofran as needed for nausea and make sure you stay well hydrated. You can take motrin or tylenol as needed for pain. You should also take yogurt or a probiotic to help reduce the GI side effects. You should follow up with your doctor this week. You should return to the emergency department at any time for new, worsening or uncontrollable symptoms.
[2017-02-23] MEDS ORDERED: ACETAMINOPHEN 500 MG TABLET PO ONE (23:06)
[2017-02-23] MEDS ORDERED: ONDANSETRON ODT 4 MG TABLET ONE (23:06)
[2017-02-23] MEDS ORDERED: SULFAMETH/TRIMETH DS 800/160 MG TABLET PO ONE (23:06)
[2017-02-23] MEDS ORDERED: PHENAZOPYRIDINE 100 MG TABLET PO ONE (23:07)
== END 2017-02-23 23:08 | disposition home or self-care (01) ==
LOC: ED 22:03
DX: N12 Tubulo-interstitial nephritis, not specified as acute or chronic (principal); Z87.440 Personal history of urinary (tract) infections
CPT/HCPCS: 81001; 81025; 87086; 87181; 99283; A9270; Q0162; 81003

== ENCOUNTER 2017-03-08 10:40 | Emergency (ER) | payer MEDICAID ==
--- NOTE | 2017-03-08 11:23 | ED Physician Documentation ---
PD HPI HEENT - Stated complaint Stated Complaint: SORE THROAT - Chief complaint Chief Complaint: Heent - History obtained from History obtained from: Patient - History of Present Illness Timing - onset: How many days ago (2-3) Timing - duration: Days (2-3) Timing - details: Abrupt onset, Still present Location: Throat. No: Right ear, Left ear, Nose Associated symptoms: Fever, Swollen nodes, Other (sore throat). 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 : None HEENT: None Psych: None Musculoskeletal: None Derm: None - Past Surgical History Past Surgical History: Yes General: Appendectomy - Present Medications Home Medications: Ambulatory Orders Medication Instructions Recorded Confirmed Pnv No.122/Iron/Folic Acid 1 tab PO DAILY 11/23/16 03/08/17 [ Multi Tablet] Sulfamethox/Trimeth 800/160 1 each PO BID #14 tablet 02/23/17 03/08/17 [Bactrim Ds 800/160] Cephalexin [Keflex] 500 mg PO TID #20 capsule 03/08/17 Dexamethasone [Decadron] 4 mg PO DAILY #5 tablet 03/08/17 HYDROcod/ACETAM 5/325 [[place] 5/325] 1 tab PO Q6H PRN #12 tablet 03/08/17 - Allergies Allergies/Adverse Reactions: Allergies Allergy/AdvReac Type Severity Reaction Status Date / Time aspirin Allergy Severe Respiratory Verified 03/08/17 10:46 Penicillins Allergy Severe Rash Verified 03/08/17 10:46 - Social History Does the pt smoke?: No Smoking Status: Never smoker Does the pt drink ETOH?: No Does the pt have substance abuse?: Yes - Immunizations Immunizations are current?: Yes - POLST Patient has POLST: No PD ED PE NORMAL - Vitals Vital signs reviewed: Yes - General General: Alert and oriented X 3, No acute distress, Well developed/nourished - HEENT HEENT: Ears normal, Moist mucous membranes. No: Pharynx benign (redness with swelling and exudate tonsillar area. No peritonsillar edema nor deviation. ) - Neck Neck: Supple, no meningeal sign, Other (anterior adenopathy) - Cardiac Cardiac: RRR, No murmur - Respiratory Respiratory: Clear bilaterally - Abdomen Abdomen: Soft, Non tender - Derm Derm: Normal color, Warm and dry, No rash Results - Vitals Vitals: Oxygen O2 Source Room air - Labs Labs: Microbiology 03/08/17 11:32 Group A Strep Throat Culture - Final Throat MIXED OROPHARYNGEAL BRIAN PRESENT. NO BETA STREP PRESENT IN CULTURE. Laboratory Tests 03/08/17 11:32 Group A Strep Rapid Negative PD MEDICAL DECISION MAKING - ED course Complexity details: considered differential (looks suspicious for bacterial and will treat empirically pending culture. ), d/w patient Departure - Departure Disposition: 01 Home, Self Care Clinical Impression: Pharyngitis Qualifiers: Pharyngitis/tonsillitis etiology: unspecified etiology Qualified Code(s): J02.9 - Acute pharyngitis, unspecified Condition: Stable Record reviewed to determine appropriate education?: Yes Instructions: ED Strep Pharyngitis Poss Prescriptions: Cephalexin [Keflex] 500 mg PO TID #20 capsule Dexamethasone [Decadron] 4 mg PO DAILY #5 tablet HYDROcod/ACETAM 5/325 [[place] 5/325] 1 tab PO Q6H PRN #12 tablet PRN Reason: Pain Comments: Your throat and symptoms suggest strep infection. We did do a throat culture and test for that. Will call you if it needs to be modified but right now we will treated with cephalexin 3 times a day for a week and Decadron for inflammation daily for 5 days. Drink lots of fluids. Add Tylenol or ibuprofen for pains and hydrocodone if needed for worse pain. Off work for 1-2 days and okay to resume work if feeling better at that time. Forms: Activity restrictions Discharge Date/Time: 03/08/17 12:13
[2017-03-08] MEDS ORDERED: cephALEXin 250 MG CAPSULE PO STA (11:32)
[2017-03-08] MEDS ORDERED: HYDROcod/ACETAM 5/325 MG TABLET PO STA (11:32)
[2017-03-08] MEDS ORDERED: DEXAMETHASONE 10 MG/ML VIAL PO STA (11:32)
[2017-03-08] MEDS ORDERED: ONDANSETRON ODT 4 MG TABLET TL STA (11:32)
[2017-03-08] MEDS ORDERED: ONDANSETRON ODT 4 MG TABLET ONE (11:43)
[2017-03-08 11:45] LABS: RAPID STREP SCREEN REAGENT QC YELLOW (YELLOW)
[2017-03-08] MEDS ORDERED: cephALEXin 250 MG CAPSULE PO ONE (11:48)
[2017-03-08] MEDS ORDERED: HYDROcod/ACETAM 5/325 MG TABLET ONE (11:49)
[2017-03-08] MEDS ORDERED: CHERRY SYRUP 10 ML UDC PO ONE (11:49)
[2017-03-08] MEDS ORDERED: DEXAMETHASONE 10 MG/ML VIAL ONE (11:49)
[2017-03-08 11:55] VITALS: BP 121/92
== END 2017-03-08 12:13 | disposition home or self-care (01) ==
LOC: ED 10:40
DX: J02.9 Acute pharyngitis, unspecified (principal)
CPT/HCPCS: 87070; 87430; 99283; A9270; Q0162

== ENCOUNTER 2017-05-14 13:23 | Emergency (ER) | payer MEDICAID ==
[2017-05-14 13:30] VITALS: BP 138/98
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
[2017-05-14] MEDS ORDERED: DEXAMETHASONE 10 MG/ML VIAL PO STA (14:43)
[2017-05-14] MEDS ORDERED: ALBUTEROL NEB 2.5 MG/3 ML INH STA (14:43)
[2017-05-14] MEDS ORDERED: HYDROcodone/ACETAM 7.5 MG/325 MG 15 ML UDC PO STA (14:43)
== END 2017-05-14 15:35 | disposition home or self-care (01) ==
LOC: ED 13:23
DX: J06.9 Acute upper respiratory infection, unspecified (principal); H66.001 Acute suppurative otitis media without spontaneous rupture of ear drum, right ear
CPT/HCPCS: 94640; 99283; A9270; J7613

== ENCOUNTER 2017-05-30 11:40 | Emergency (ER) | payer MEDICAID ==
[2017-05-30 12:03] LABS: BILIRUBIN,URINE NEGATIVE (NEGATIVE); GLUCOSE, URINE (UA) NEGATIVE (NEGATIVE); KETONES,URINE (UA) NEGATIVE (NEGATIVE); LEUKOCYTE ESTERASE, URINE SMALL (NEGATIVE); NITRITE,URINE NEGATIVE (NEGATIVE); OCCULT BLOOD,URINE LARGE (NEGATIVE); PROTEIN,URINE TRACE mg/dL (NEGATIVE); UROBILINOGEN,URINE 0.2 (NORMAL) E.U./dL (NORMAL)
[2017-05-30 12:06] LABS: CLARITY,URINE HAZY (CLEAR); HCG UR QUAL NEGATIVE
[2017-05-30 12:18] LABS: BACTERIA,URINE Moderate /HPF (None Seen); SQUAMOUS EPITHELIAL CELL,UR FEW Squamous (<= Few)
[2017-05-30] MEDS ORDERED: cefTRIAXone 1 GM VIAL IM STA (12:39)
[2017-05-30] MEDS ORDERED: LIDOCAINE 1% 2 ML VIAL SUBQ ONE (12:39)
[2017-05-30] MEDS ORDERED: ONDANSETRON 4 MG/2 ML VIAL IM STA (12:39)
[2017-05-30] MEDS ORDERED: MORPHINE 10 MG/ML VIAL IM STA (12:39)
--- NOTE | 2017-05-30 12:43 | ED Physician Documentation ---
PD HPI ABD PAIN - Stated complaint Stated Complaint: SIDE PX - Chief complaint Chief Complaint: Abd Pain - History obtained from History obtained from: Patient - History of Present Illness Timing - onset: Other (She developed flank pain, subjective fevers, vomiting and urinary frequency about 24 hours ago. This would be her fourth episode of pyelonephritis in the last 12 months.) Review of Systems Constitutional: reports: Fever, Myalgias Nose: denies: Rhinorrhea / runny nose Throat: denies: Sore throat GI: reports: Nausea, Vomiting. denies: Abdominal Pain, Constipation, Diarrhea : reports: Dysuria, Frequency. denies: Now EGA PD PAST MEDICAL HISTORY - Past Medical History Past Medical History: No Cardiovascular: None Respiratory: None Neuro: None Endocrine/Autoimmune: None GI: None INTERNAL CARVER: None : None HEENT: None Psych: None Musculoskeletal: None Derm: None - Past Surgical History Past Surgical History: Yes General: Appendectomy /INTERNAL CARVER: section - Present Medications Home Medications: Ambulatory Orders Medication Instructions Recorded Confirmed Albuterol Sulf [Ventolin Hfa 1 - 2 puffs INH Q4HR PRN #1 inhaler 05/14/17 Inhaler] HYDROcod/ACETAM 5/325 [[place] 5/325] 1 - 2 ea PO Q6H PRN #15 tablet 05/30/17 Ondansetron HCl [Zofran] 4 mg PO Q6H PRN #10 tablet 05/30/17 Sulfamethoxazole/Trimethoprim 1 each PO BID 7 Days tablet 05/30/17 [Sulfamethoxazole-Tmp Ds Tablet] - Allergies Allergies/Adverse Reactions: Allergies Allergy/AdvReac Type Severity Reaction Status Date / Time aspirin Allergy Severe Respiratory Verified 05/30/17 11:46 Penicillins Allergy Severe Rash Verified 05/30/17 11:46 - Social History Does the pt smoke?: No Smoking Status: Never smoker Does the pt drink ETOH?: No Does the pt have substance abuse?: Yes - Immunizations Immunizations are current?: Yes - POLST Patient has POLST: No PD ED PE NORMAL - Vitals Vital signs reviewed: Yes - General General: Alert and oriented X 3, No acute distress - Cardiac Cardiac: RRR, No murmur - Respiratory Respiratory: No respiratory distress, Clear bilaterally - Abdomen Abdomen: Soft, Non tender - Back Back: No CVA TTP - Neuro Neuro: Alert and oriented X 3, Normal speech Results - Vitals Vitals: Vital Signs - 24 hr 05/30/17 11:43 Temperature 36.6 C Heart Rate 108 H Respiratory 18 Rate Blood Pressure 124/98 H O2 Saturation 96 Oxygen O2 Source Room air - Labs Labs: Laboratory Tests 05/30/17 05/30/17 11:49 11:49 Urine Color YELLOW Urine Clarity HAZY Urine pH 6.0 Ur Specific [place] 1.010 1.010 Urine Protein TRACE Urine Glucose (UA) NEGATIVE Urine Ketones NEGATIVE Urine Occult Blood LARGE H Urine Nitrite NEGATIVE Urine Bilirubin NEGATIVE Urine Urobilinogen 0.2 (NORMAL) Ur Leukocyte Esterase SMALL H Urine RBC 6-10 H Urine WBC 11-25 H Ur Squamous Epith Cells FEW Squamous Urine Bacteria Moderate H Ur Microscopic Review INDICATED Urine Culture Comments INDICATED Urine HCG, Qual NEGATIVE PD MEDICAL DECISION MAKING - ED course ED course: She does not appear ill enough to need IV fluids etc., she is mildly tachycardic. She is administered Rocephin IM as well as morphine and Zofran here and passed an oral challenge. Departure - Departure Disposition: 01 Home, Self Care Clinical Impression: Pyelonephritis Condition: Good Record reviewed to determine appropriate education?: Yes Instructions: Pyelonephritis Dc Prescriptions: HYDROcod/ACETAM 5/325 [[place] 5/325] 1 - 2 ea PO Q6H PRN #15 tablet PRN Reason: Pain Ondansetron HCl [Zofran] 4 mg PO Q6H PRN #10 tablet PRN Reason: Nausea / Vomiting Sulfamethoxazole/Trimethoprim [Sulfamethoxazole-Tmp Ds Tablet] 1 each PO BID 7 Days tablet Comments: As discussed, given the frequency with which you are having kidney infections I recommend you follow-up with a urologist, the closest is in [place], the phone number is [phone]. We will culture your urine, the results should be done in 48-72 hours. If an antibiotic change is necessary we will call you. Return if worse in the meantime. Do not drink or drive while taking narcotic pain medication. Note that many narcotic pain relievers also contain Tylenol/acetaminophen. Please ensure that your total dose of acetaminophen from all sources does not exceed 3 g (3000 mg) per day. You may get constipated while on this medication. Take a stool softener such as Colace twice a day while you are on it. Also add an [id number] laxative such as senna or MiraLAX on any day that you do not have a bowel movement. If you received a narcotic pain medication or sedative while in the emergency department, do not drive for the next 24 hours.
[2017-05-30 13:18] VITALS: BP 122/82
== END 2017-05-30 13:17 | disposition home or self-care (01) ==
LOC: ED 11:40
DX: N12 Tubulo-interstitial nephritis, not specified as acute or chronic (principal)
CPT/HCPCS: 81001; 81003; 81025; 87086; 96372; 99283

== ENCOUNTER 2017-10-23 22:00 | Outpatient (CLI) | payer MEDICAID | END 2017-10-23 22:01 | disposition critical access hospital (66) | LOC: EMS 22:00 | PROVIDERS: ATTEND Surgery | DX: M54.2 Cervicalgia (principal); R42 Dizziness and giddiness; M25.511 Pain in right shoulder; M25.562 Pain in left knee; Y04.8XXA Assault by other bodily force, initial encounter | CPT/HCPCS: A0425; A0429 ==

== ENCOUNTER 2017-10-23 22:21 | Emergency (ER) | payer MEDICAID ==
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
--- NOTE | 2017-10-23 23:30 | XRAY Preliminary Report ---
Exam: XR SHOULDER 3 VIEW RT IMPRESSION: Normal shoulder radiography. [facility] SITE ID: [id number]
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
--- NOTE | 2017-10-23 23:31 | XRAY Preliminary Report ---
Exam: XR ANKLE 3 VIEW LT IMPRESSION: Normal ankle radiography. [facility] SITE ID: [id number]
--- NOTE | 2017-10-23 23:48 | CT Preliminary Report ---
Exam: CT CERVICAL SPINE W/O IMPRESSION: Normal cervical spine CT. [facility] SITE ID: [id number]
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
[2017-10-24] VITALS: BP 125/69
== END 2017-10-24 | disposition home or self-care (01) ==
LOC: EDUNIT# → ED 22:21
DX: S13.9XXA Sprain of joints and ligaments of unspecified parts of neck, initial encounter (principal); Y04.2XXA Assault by strike against or bumped into by another person, initial encounter
CPT/HCPCS: 72125; 99283

== ENCOUNTER 2018-01-11 09:16 | Emergency (ER) | payer MEDICAID ==
[2018-01-11 09:41] LABS: BILIRUBIN,URINE NEGATIVE (NEGATIVE); GLUCOSE, URINE (UA) NEGATIVE (NEGATIVE); KETONES,URINE (UA) NEGATIVE (NEGATIVE); LEUKOCYTE ESTERASE, URINE MODERATE (NEGATIVE); NITRITE,URINE POSITIVE (NEGATIVE); OCCULT BLOOD,URINE LARGE (NEGATIVE); PH,URINE 6.5 PH (5.0-7.5); PROTEIN,URINE 100 mg/dL (NEGATIVE); UROBILINOGEN,URINE 0.2 (NORMAL) E.U./dL (NORMAL)
[2018-01-11 09:44] LABS: CLARITY,URINE CLOUDY (CLEAR); HCG UR QUAL NEGATIVE
[2018-01-11 10:07] LABS: BACTERIA,URINE Many /HPF (None Seen); SQUAMOUS EPITHELIAL CELL,UR MOD Squamous (<= Few)
[2018-01-11] MEDS ORDERED: IBUPROFEN 600 MG TABLET PO STA (10:08)
[2018-01-11] MEDS ORDERED: ONDANSETRON ODT 4 MG TABLET TL STA (10:08)
[2018-01-11] MEDS ORDERED: SULFAMETH/TRIMETH DS 800/160 MG TABLET PO STA (10:08)
[2018-01-11 10:52] VITALS: BP 126/87
--- NOTE | 2018-01-11 11:26 | ED Physician Documentation ---
PD HPI FEMALE - Stated complaint Stated Complaint: BODY ACHES - Chief complaint Chief Complaint: General - History obtained from History obtained from: Patient - History of Present Illness Timing - onset: How many days ago (several) Timing - duration: Days Timing - details: Gradual onset, Still present, Waxing and waning Associated symptoms: Abdominal pain, Dysuria, Other (right flank pain). No: Fever Contributing factors: Sexually active. No: Exposed to STD Similar symptoms before: Diagnosis (UTIs and pyelo) Recently seen: Not recently seen Review of Systems Constitutional: reports: Chills, Myalgias. denies: Fever Nose: denies: Rhinorrhea / runny nose, Congestion Throat: denies: Sore throat Respiratory: denies: Dyspnea, Cough GI: reports: Abdominal Pain, Nausea. denies: Vomiting, Diarrhea : reports: Dysuria, Frequency. 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 - Present Medications Home Medications: Ambulatory Orders Medication Instructions Recorded Confirmed Albuterol Sulf [Ventolin Hfa 1 - 2 puffs INH Q4HR PRN #1 inhaler 05/14/17 Inhaler] HYDROcod/ACETAM 5/325 [[place] 5/325] 1 - 2 ea PO Q6H PRN #15 tablet 05/30/17 Ondansetron HCl [Zofran] 4 mg PO Q6H PRN #10 tablet 05/30/17 Sulfamethoxazole/Trimethoprim 1 each PO BID 7 Days tablet 05/30/17 [Sulfamethoxazole-Tmp Ds Tablet] Naproxen 375 mg PO BID #20 tablet 01/11/18 Ondansetron Odt [Zofran] 4 mg TL Q6H PRN #15 tablet 01/11/18 Sulfamethox/Trimeth 800/160 1 each PO BID #14 tablet 01/11/18 [Bactrim Ds 800/160] - Allergies Allergies/Adverse Reactions: Allergies Allergy/AdvReac Type Severity Reaction Status Date / Time aspirin Allergy Severe Respiratory Verified 10/23/17 22:40 Penicillins Allergy Severe Rash Verified 10/23/17 22:40 - Social History Does the pt smoke?: No Smoking Status: Never smoker Does the pt drink ETOH?: No Does the pt have substance abuse?: Yes - Immunizations Immunizations are current?: Yes - POLST Patient has POLST: No PD ED PE NORMAL - Vitals Vital signs reviewed: Yes - HEENT HEENT: Pharynx benign - Neck Neck: Supple, no meningeal sign, No adenopathy - Cardiac Cardiac: RRR, No murmur - Respiratory Respiratory: Clear bilaterally - Abdomen Abdomen: Normal bowel sounds, Soft, Non tender, Non distended - Female Female : Deferred - Rectal Rectal: Deferred - Back Back: No spinal TTP, Other (mild right CVA tenderness) - Derm Derm: Normal color, Warm and dry - Neuro Neuro: Alert and oriented X 3, No motor deficit, Normal speech Results - Vitals Vitals: Oxygen O2 Source Room air - Labs Labs: Laboratory Tests 01/11/18 09:30 Urine Color YELLOW Urine Clarity CLOUDY Urine pH 6.5 Ur Specific [place] 1.015 Urine Protein 100 H Urine Glucose (UA) NEGATIVE Urine Ketones NEGATIVE Urine Occult Blood LARGE H Urine Nitrite POSITIVE H Urine Bilirubin NEGATIVE Urine Urobilinogen 0.2 (NORMAL) Ur Leukocyte Esterase MODERATE H Urine RBC 6-10 H Urine WBC >25 H Ur Squamous Epith Cells MOD Squamous H Urine Bacteria Many H Ur Microscopic Review INDICATED Urine Culture Comments NOT INDICATED Urine HCG, Qual NEGATIVE PD MEDICAL DECISION MAKING - ED course Complexity details: reviewed old records (prior UTIs and pyelo episodes.), reviewed results (has positive UA. Does not appear septic/ill. ), considered differential, d/w patient - Sepsis Event Vital Signs: Oxygen O2 Source Room air Departure - Departure Disposition: 01 Home, Self Care Clinical Impression: UTI (lower urinary tract infection) Condition: Stable Record reviewed to determine appropriate education?: Yes Instructions: ED UTI Cystitis Female Prescriptions: Naproxen 375 mg PO BID #20 tablet Ondansetron Odt [Zofran] 4 mg TL Q6H PRN #15 tablet PRN Reason: Nausea / Vomiting Sulfamethox/Trimeth 800/160 [Bactrim Ds 800/160] 1 each PO BID #14 tablet Comments: Drink lots of fluids. Naproxen twice daily for pain and inflammation. Bactrim twice daily for infection. Ondansetron if needed for nausea. Add Tylenol if needed for pains. Recheck if not improving over the next couple of days. Rest off work for today and tomorrow. Forms: Activity restrictions Discharge Date/Time: 01/11/18 11:29
== END 2018-01-11 11:29 | disposition home or self-care (01) ==
LOC: ED 09:16
DX: N39.0 Urinary tract infection, site not specified (principal)
CPT/HCPCS: 81001; 81025; 99282; 99283; A9270; Q0162; 81003; 87086

== ENCOUNTER 2018-01-17 20:57 | Emergency (ER) | payer MEDICAID ==
--- NOTE | 2018-01-17 21:17 | ED Physician Documentation ---
PD HPI ABD PAIN - Stated complaint Stated Complaint: RT SIDE/BACK PX - Chief complaint Chief Complaint: Abd Pain - History obtained from History obtained from: Patient - History of Present Illness Timing - onset: How many weeks ago (1) Timing - details: Gradual onset, Waxing and waning Pain level max: 8 Pain level now: 6 Quality: Pain Location: RUQ Radiation: Right flank Improved by: Other (no ameliorating factors) Worsened by: Other (no exacerbating factors) Associated symptoms: Fever (subjective (chills, sweats, but did not take temperature at home)), Nausea, Other (urinary frequency, urgency). No: Vomiting , Diarrhea, Constipation, Dysuria Recently seen: Emergency Dept (6 days ago) - Additional information Additional information: presented to this ED 6 days ago for urinary urgency and frequency, UA at that time s/o UTI, prescribed Bactrim. She has been taking this as prescribed, but symptoms worsened, and she developed subjective fevers yesterday and today (did not take temperature, but shaking chills and diaphoresis, feels subjectively as though she has a fever). Also intermittent dyspnea, fatigue, myalgias. She has also developed increasingly frequent and severe right abdominal and right flank pain, waxing and waning without apparent exacerbating or ameliorating factors. Review of Systems Constitutional: reports: Fever (subjective), Chills, Myalgias, Fatigue, Sweats Eyes: reports: Reviewed and negative Ears: reports: Reviewed and negative Nose: reports: Reviewed and negative Throat: reports: Reviewed and negative Cardiac: reports: Reviewed and negative Respiratory: reports: Dyspnea. denies: Cough GI: reports: Abdominal Pain, Nausea. denies: Vomiting, Constipation, Diarrhea : reports: Frequency, Other (urinary urgency). 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 - Present Medications Home Medications: Ambulatory Orders Medication Instructions Recorded Confirmed Albuterol Sulf [Ventolin Hfa 1 - 2 puffs INH Q4HR PRN #1 inhaler 05/14/17 Inhaler] HYDROcod/ACETAM 5/325 [[place] 5/325] 1 - 2 ea PO Q6H PRN #15 tablet 05/30/17 Ondansetron HCl [Zofran] 4 mg PO Q6H PRN #10 tablet 05/30/17 Sulfamethoxazole/Trimethoprim 1 each PO BID 7 Days tablet 05/30/17 [Sulfamethoxazole-Tmp Ds Tablet] Naproxen 375 mg PO BID #20 tablet 01/11/18 Ondansetron Odt [Zofran] 4 mg TL Q6H PRN #15 tablet 01/11/18 Sulfamethox/Trimeth 800/160 1 each PO BID #14 tablet 01/11/18 [Bactrim Ds 800/160] - Allergies Allergies/Adverse Reactions: Allergies Allergy/AdvReac Type Severity Reaction Status Date / Time aspirin Allergy Severe Respiratory Verified 01/17/18 21:06 Penicillins Allergy Severe Rash Verified 01/17/18 21:06 - Social History Does the pt smoke?: No Smoking Status: Never smoker Does the pt drink ETOH?: No Does the pt have substance abuse?: Yes - Immunizations Immunizations are current?: Yes - POLST Patient has POLST: No PD ED PE NORMAL - Vitals Vital signs reviewed: Yes - General General: Alert and oriented X 3, No acute distress, Well developed/nourished - HEENT HEENT: Moist mucous membranes - Neck Neck: Supple, no meningeal sign - Cardiac Cardiac: No murmur - Respiratory Respiratory: No respiratory distress, Clear bilaterally - Abdomen Abdomen: Soft, Non distended, Other (mild RUQ and right hypogastric tenderness to palpation without guarding or rebound) - Derm Derm: Normal color, Warm and dry, No rash - Extremities Extremities: No edema PD ED PE EXPANDED - Cardiac Cardiac: Tachy, Regular Rhythm - Back Back: CVA TTP right Results - Vitals Vitals: Vital Signs - 24 hr 01/17/18 01/18/18 01/18/18 21:02 00:35 02:30 Temperature 37.1 C 37.2 C 37.3 C Heart Rate 108 H 96 90 Respiratory 20 18 16 Rate Blood Pressure 136/92 H 132/92 H 128/88 H O2 Saturation 100 98 97 Oxygen O2 Source Room air - Labs Labs: Laboratory Tests 01/17/18 01/17/18 01/17/18 21:10 21:10 21:10 WBC 23.9 H RBC 4.24 Hgb 11.8 L Hct 35.2 L MCV 83.0 MCH 27.7 MCHC 33.4 RDW 14.4 Plt Count 425 MPV 7.3 L Neut # (Auto) Not Reportable Lymph # (Auto) Not Reportable [place] # (Auto) Not Reportable Eos # (Auto) Not Reportable Baso # (Auto) Not Reportable Absolute Nucleated RBC Not Reportable Total Counted 100 Band Neuts % (Manual) 13 H Abnorm Lymph % (Manual) 0 Nucleated RBC % Not Reportable Neutrophils # (Manual) 20.6 H Lymphocytes # (Manual) 2.2 Monocytes # (Manual) 1.2 H Eosinophils # (Manual) 0.0 Basophils # (Manual) 0.0 Differential Comment MANUAL DIFFERENTIAL Platelet Estimate NORMAL (130-450,000) Platelet Morphology NORMAL APPEARANCE RBC Morph Micro Appear NORMAL APPEARANCE Sodium 133 L Potassium 3.1 L Chloride 99 L Carbon Dioxide 24 Anion Gap 10.0 BUN 17 Creatinine 1.8 H Estimated GFR (MDRD) 32 L Glucose 158 H Calcium 8.4 L Total Bilirubin 1.0 AST 49 H ALT 57 Alkaline Phosphatase 175 H Total Protein 7.7 Albumin 3.2 Globulin 4.5 H Albumin/Globulin Ratio 0.7 L Lipase 24 Urine Color Urine Clarity Urine pH Ur Specific [place] 1.020 Urine Protein Urine Glucose (UA) Urine Ketones Urine Occult Blood Urine Nitrite Urine Bilirubin Urine Urobilinogen Ur Leukocyte Esterase Urine RBC Urine WBC Ur Squamous Epith Cells Urine Bacteria Ur Microscopic Review Urine Culture Comments Urine HCG, Qual NEGATIVE 01/17/18 21:10 WBC RBC Hgb Hct MCV MCH MCHC RDW Plt Count MPV Neut # (Auto) Lymph # (Auto) [place] # (Auto) Eos # (Auto) Baso # (Auto) Absolute Nucleated RBC Total Counted Band Neuts % (Manual) Abnorm Lymph % (Manual) Nucleated RBC % Neutrophils # (Manual) Lymphocytes # (Manual) Monocytes # (Manual) Eosinophils # (Manual) Basophils # (Manual) Differential Comment Platelet Estimate Platelet Morphology RBC Morph Micro Appear Sodium Potassium Chloride Carbon Dioxide Anion Gap BUN Creatinine Estimated GFR (MDRD) Glucose Calcium Total Bilirubin AST ALT Alkaline Phosphatase Total Protein Albumin Globulin Albumin/Globulin Ratio Lipase Urine Color YELLOW Urine Clarity CLOUDY Urine pH 6.0 Ur Specific [place] 1.020 Urine Protein 100 H Urine Glucose (UA) NEGATIVE Urine Ketones NEGATIVE Urine Occult Blood LARGE H Urine Nitrite NEGATIVE Urine Bilirubin NEGATIVE Urine Urobilinogen 4 H Ur Leukocyte Esterase LARGE H Urine RBC 6-10 H Urine WBC >25 H Ur Squamous Epith Cells RARE Squamous Urine Bacteria Moderate H Ur Microscopic Review INDICATED Urine Culture Comments INDICATED Urine HCG, Qual - Rads (name of study) CT A/P Radiology: Prelim report reviewed, See rad report PD MEDICAL DECISION MAKING - ED course Complexity details: reviewed old records, reviewed results, re-evaluated patient , considered differential, d/w patient ED course: Unfortunately, previous UA had too many squamous cells for lab to culture the sample. UA today s/o ongoing UTI. She has substantial leukocytosis on CBC. Creatinine elevated at 1.8 (several previous results on records, all normal until tonight) . CT reveals large UPJ calculus. D/W Dr. Thompson (on-call urology at [facility]), agrees with transfer to [facility], recommends admit to hospitalist. D/W Dr. Akins, accepts transfer to [facility]. Patient given Rocephin during ED stay. Her allergy to PCN is rash, which sounds mild per patient's description. - Sepsis Event Vital Signs: Vital Signs - 24 hr 01/17/18 01/18/18 01/18/18 21:02 00:35 02:30 Temperature 37.1 C 37.2 C 37.3 C Heart Rate 108 H 96 90 Respiratory 20 18 16 Rate Blood Pressure 136/92 H 132/92 H 128/88 H O2 Saturation 100 98 97 Oxygen O2 Source Room air Departure - Departure Disposition: 02 Transfer Acute Care Hosp Clinical Impression: Pyelonephritis, Ureterolithiasis Condition: Stable Discharge Date/Time: 01/18/18 02:42
[2018-01-17 21:28] LABS: BASOPHILS % (AUTO) 0.5 %; BILIRUBIN,URINE NEGATIVE (NEGATIVE); EOSINOPHILS % (AUTO) 0.3 %; GLUCOSE, URINE (UA) NEGATIVE (NEGATIVE); HGB - HEMOGLOBIN 11.8 g/dL (12.0-16.0); KETONES,URINE (UA) NEGATIVE (NEGATIVE); LEUKOCYTE ESTERASE, URINE LARGE (NEGATIVE); LYMPHOCYTES % (AUTO) 6.1 %; MEAN CORPUSCULAR HEMOGLOBIN 27.7 pg (27.0-31.0); MEAN CORPUSCULAR HGB CONC 33.4 g/dL (32.0-36.0); MEAN PLATELET VOLUME 7.3 fL (7.9-10.8); MONOCYTES % (AUTO) 9.7 %; NEUTROPHILS % (AUTO) 83.4 %; NITRITE,URINE NEGATIVE (NEGATIVE); OCCULT BLOOD,URINE LARGE (NEGATIVE); PLT - PLATELET COUNT 425 10^3/uL (130-450); PROTEIN,URINE 100 mg/dL (NEGATIVE); RED BLOOD COUNT 4.24 10^6/uL (4.20-5.40); RED CELL DISTRIBUTION WIDTH 14.4 % (12.0-15.0); UROBILINOGEN,URINE 4 E.U./dL (NORMAL); WHITE BLOOD COUNT 23.9 x10^3/uL (4.8-10.8)
[2018-01-17 21:32] LABS: CLARITY,URINE CLOUDY (CLEAR)
[2018-01-17 21:33] LABS: HCG UR QUAL NEGATIVE
[2018-01-17 21:34] LABS: ABNORMAL LYMPHS % (MANUAL) 0 %
[2018-01-17 21:37] LABS: BACTERIA,URINE Moderate /HPF (None Seen); SQUAMOUS EPITHELIAL CELL,UR RARE Squamous (<= Few)
[2018-01-17 21:38] LABS: ALBUMIN 3.2 g/dL (3.2-5.5); ALBUMIN/GLOBULIN RATIO 0.7 (1.0-2.2); CALCIUM 8.4 mg/dL (8.5-10.3); CREATININE 1.8 mg/dL (0.4-1.0); TOTAL PROTEIN 7.7 g/dL (6.7-8.2)
[2018-01-17] MEDS ORDERED: ONDANSETRON 4 MG/2 ML VIAL IVP STA (21:44)
[2018-01-17] MEDS ORDERED: SODIUM CHLORIDE 0.9% 1,000 ML IV STA ×2 (21:44→22:32)
[2018-01-17] MEDS ORDERED: KETOROLAC 60 MG/2 ML VIAL IVP STA (21:44)
[2018-01-17 21:50] LABS: BAND NEUTROPHILS % (MANUAL) 13 %; LYMPHOCYTES # (MANUAL) 2.2 10^3/uL (1.5-3.5); LYMPHOCYTES % (MANUAL) 9 %; MONOCYTES # (MANUAL) 1.2 10^3/uL (0.0-1.0); NEUTROPHILS # (MANUAL) 20.6 10^3/uL (1.5-6.6); NEUTROPHILS % (MANUAL) 73 %
[2018-01-17 21:51] LABS: DIFFERENTIAL COMMENT MANUAL DIFFERENTIAL; PLATELET ESTIMATE, MANUAL NORMAL (130-450,000) (NORMAL); PLATELET MORPHOLOGY NORMAL APPEARANCE (NORMAL); RBC MORPHOLOGY (MULTIPLE) NORMAL APPEARANCE (NORMAL)
[2018-01-17] MEDS ORDERED: cefTRIAXone 1 GM in SODIUM CHLORIDE 0.9% MINIBAG 100 ML IV STA (22:32)
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
[2018-01-17] MEDS ORDERED: MORPHINE 2 MG/ML CARPUJECT IVP STA (23:22)
[2018-01-18] MEDS ORDERED: SODIUM CHLORIDE 0.9% 1,000 ML IV STA (02:03)
[2018-01-18 02:32] VITALS: BP 128/88
== END 2018-01-18 02:42 | disposition short-term general hospital (02) ==
LOC: ED 20:57
DX: N20.1 Calculus of ureter (principal)
CPT/HCPCS: 36415; 74176; 80053; 81001; 81003; 81025; 83690; 85025; 87086; 87181; 96361; 96365; 96375; 99284; 99285

== ENCOUNTER 2018-01-18 02:33 | Outpatient (CLI) | payer MEDICAID | END 2018-01-18 02:34 | disposition short-term general hospital (02) | LOC: EMS 02:33 | PROVIDERS: ATTEND Surgery | DX: N12 Tubulo-interstitial nephritis, not specified as acute or chronic (principal); N20.1 Calculus of ureter ==

== ENCOUNTER 2018-03-28 19:08 | Emergency (ER) | payer MEDICAID ==
[2018-03-28 19:28] LABS: BILIRUBIN,URINE NEGATIVE (NEGATIVE); GLUCOSE, URINE (UA) NEGATIVE (NEGATIVE); KETONES,URINE (UA) NEGATIVE (NEGATIVE); LEUKOCYTE ESTERASE, URINE TRACE (NEGATIVE); NITRITE,URINE NEGATIVE (NEGATIVE); OCCULT BLOOD,URINE LARGE (NEGATIVE); PROTEIN,URINE NEGATIVE (NEGATIVE); UROBILINOGEN,URINE 0.2 (NORMAL) E.U./dL (NORMAL)
[2018-03-28 19:30] LABS: CLARITY,URINE CLEAR (CLEAR); HCG UR QUAL NEGATIVE
[2018-03-28 19:39] LABS: BACTERIA,URINE Few /HPF (None Seen); SQUAMOUS EPITHELIAL CELL,UR MANY Squamous (<= Few); WBC CLUMPS,URINE PRESENT
[2018-03-28 19:57] LABS: BASOPHILS # (AUTO) 0.1 10^3/uL (0.0-0.1); BASOPHILS % (AUTO) 0.3 %; EOSINOPHILS # (AUTO) 0.2 10^3/uL (0.0-0.7); EOSINOPHILS % (AUTO) 1.2 %; LYMPHOCYTES # (AUTO) 1.7 10^3/uL (1.5-3.5); LYMPHOCYTES % (AUTO) 10.8 %; MEAN CORPUSCULAR HEMOGLOBIN 27.5 pg (27.0-31.0); MEAN CORPUSCULAR HGB CONC 32.2 g/dL (32.0-36.0); MEAN CORPUSCULAR VOLUME 85.3 fL (81.0-99.0); MEAN PLATELET VOLUME 7.1 fL (7.9-10.8); MONOCYTES # (AUTO) 1.1 10^3/uL (0.0-1.0); MONOCYTES % (AUTO) 7.1 %; NEUTROPHILS # (AUTO) 12.9 10^3/uL (1.5-6.6); NEUTROPHILS % (AUTO) 80.6 %; PLT - PLATELET COUNT 386 10^3/uL (130-450); RED BLOOD COUNT 4.73 10^6/uL (4.20-5.40); RED CELL DISTRIBUTION WIDTH 15.1 % (12.0-15.0)
[2018-03-28 20:12] LABS: ALBUMIN 3.9 g/dL (3.2-5.5); ALBUMIN/GLOBULIN RATIO 1.1 (1.0-2.2); BILIRUBIN,TOTAL 0.4 mg/dL (0.2-1.0); CALCIUM 9.1 mg/dL (8.5-10.3); CREATININE 0.8 mg/dL (0.4-1.0); TOTAL PROTEIN 7.5 g/dL (6.7-8.2)
[2018-03-28] MEDS ORDERED: fentaNYL 100 MCG/2 ML VIAL IVP STA (21:07)
[2018-03-28] MEDS ORDERED: ONDANSETRON 4 MG/2 ML VIAL IVP STA (21:08)
[2018-03-28] MEDS ORDERED: KETOROLAC 60 MG/2 ML VIAL IVP STA (21:08)
--- NOTE | 2018-03-28 22:26 | CT Report ---
Reason: Right flank pain, with hematuria; h/o kidney stone Procedure Date: 03/28/2018 Accession Number: [id number] / [id number] Procedure: CT - Abdomen/Pelvis W/O CPT Code: FULL RESULT: EXAM: CT ABDOMEN AND PELVIS (CT KUB) EXAM DATE: 03/28/2018 10:07 PM. CLINICAL HISTORY: Right flank pain, with hematuria; h/o kidney stone. COMPARISONS: ABDOMEN/PELVIS W/O 01/17/2018 10:40 PM. TECHNIQUE: Routine axial helical CT imaging was performed through the abdomen and pelvis without IV contrast. Reconstructions: Coronal and sagittal. In accordance with CT protocol optimization, one or more of the following dose reduction techniques were utilized for this exam: automated exposure control, adjustment of mA and/or KV based on patient size, or use of iterative reconstructive technique. FINDINGS: Lung Bases: Unremarkable. Right Kidney/Ureter: Resolution of previously seen right hydronephrosis. 2 tiny right renal calculi. Left Kidney/Ureter: Stable indeterminate nodule arising from the lower pole of the left kidney. Stable tiny nonobstructing calculi and likely left nephrocalcinosis. Other Solid Organs: Noncontrast images of the solid organs are grossly unremarkable. Gallbladder/Bile Ducts: Unremarkable. Peritoneal Cavity: Postoperative changes of appendectomy. No bowel dilatation, free of atelectasis, or free fluid. Pelvic Organs: IUD in the pelvis. No pelvic adenopathy or free fluid. Vasculature: Unremarkable. Other: None. IMPRESSION: Resolution of previously seen right hydronephrosis. Tiny nonobstructing bilateral calculi. Stable indeterminate nodule arising from the lower pole of the left kidney, and likely left nephrocalcinosis. [facility]
--- NOTE | 2018-03-28 22:32 | ED Physician Documentation ---
PD HPI ABD PAIN - Stated complaint Stated Complaint: BACK/ABD PX/NAUSEA - Chief complaint Chief Complaint: Abd Pain - History obtained from History obtained from: Patient - History of Present Illness Timing - onset: Yesterday Timing - duration: Days (2) Timing - details: Gradual onset Quality: Pain Location: Other (right flank) Associated symptoms: Nausea, Vomiting. No: Fever, Diarrhea, Dysuria Similar symptoms before: Diagnosis (History of similar symptoms in the past with kidney stones and with pyelonephritis. She underwent removal of right kidney stones in January 2018.) - Additional information Additional information: The patient is a 32-year-old female who presents with right-sided abdominal pain radiating to the right flank. The pain started yesterday and is worse today. She reports associated nausea and vomiting. She denies fever or dysuria. She is currently on her menstrual period. She reports history of similar pain with kidney stones for which she underwent surgical removal in January 2018. She also has history of recurrent pyelonephritis. Review of Systems Constitutional: denies: Fever Nose: denies: Congestion Throat: denies: Sore throat Cardiac: denies: Chest pain / pressure Respiratory: denies: Dyspnea, Cough GI: reports: Abdominal Pain, Nausea, Vomiting. denies: Diarrhea : reports: LMP (current). denies: Dysuria, Discharge Skin: denies: Rash Musculoskeletal: reports: Back pain (right flank) Neurologic: denies: Headache PD PAST MEDICAL HISTORY - Past Medical History Past Medical History: Yes Cardiovascular: None Respiratory: None Endocrine/Autoimmune: None GI: None LODGING FACILITIES ATTENDANT: None : Kidney stones HEENT: None Psych: None Musculoskeletal: None Derm: None - Past Surgical History Past Surgical History: Yes General: Appendectomy /LODGING FACILITIES ATTENDANT: section - Present Medications Home Medications: Ambulatory Orders Medication Instructions Recorded Confirmed Albuterol Sulf [Ventolin Hfa 1 - 2 puffs INH Q4HR PRN #1 inhaler 05/14/17 05/30/17 Inhaler] HYDROcod/ACETAM 5/325 [[place] 5/325] 1 - 2 ea PO Q6H PRN #15 tablet 05/30/17 Ondansetron HCl [Zofran] 4 mg PO Q6H PRN #10 tablet 05/30/17 Sulfamethoxazole/Trimethoprim 1 each PO BID 7 Days tablet 05/30/17 [Sulfamethoxazole-Tmp Ds Tablet] Naproxen 375 mg PO BID #20 tablet 01/11/18 Ondansetron Odt [Zofran] 4 mg TL Q6H PRN #15 tablet 01/11/18 Sulfamethox/Trimeth 800/160 1 each PO BID #14 tablet 01/11/18 [Bactrim Ds 800/160] Ciprofloxacin HCl [Cipro] 500 mg PO BID #14 tablet 03/28/18 Hydrocodone/Acetaminophen 1 - 2 each PO Q6H PRN #14 tablet 03/28/18 [Hydrocodon-Acetaminophen 5-325] Promethazine [Phenergan] 25 mg PO Q6H PRN #10 tab 03/28/18 - Allergies Allergies/Adverse Reactions: Allergies Allergy/AdvReac Type Severity Reaction Status Date / Time aspirin Allergy Severe Respiratory Verified 01/17/18 21:06 Penicillins Allergy Severe Rash Verified 01/17/18 21:06 - Social History Does the pt smoke?: No Smoking Status: Never smoker Does the pt drink ETOH?: Yes Does the pt have substance abuse?: No - Immunizations Immunizations are current?: Yes - POLST Patient has POLST: No PD ED PE NORMAL - Vitals Vital signs reviewed: Yes (hypertensive initially) - General General: Alert and oriented X 3, Well developed/nourished - HEENT HEENT: Atraumatic, Moist mucous membranes, Pharynx benign - Neck Neck: No adenopathy, No JVD - Cardiac Cardiac: RRR, No murmur - Respiratory Respiratory: No respiratory distress, Clear bilaterally - Abdomen Abdomen: Normal bowel sounds, Soft, Other (Tenderness to palpation in right midabdomen, without rebound or guarding.) - Back Back: Other (Right CVA tenderness to percussion.) - Derm Derm: No rash - Extremities Extremities: No edema, No calf tenderness / cord - Neuro Neuro: Alert and oriented X 3, No motor deficit, Normal speech Results - Vitals Vitals: Vital Signs - 24 hr 03/28/18 03/28/18 19:11 23:21 Temperature 36.6 C Heart Rate 98 86 Respiratory 16 16 Rate Blood Pressure 175/119 H 164/104 H O2 Saturation 99 98 Oxygen O2 Source Room air - Labs Labs: Laboratory Tests 03/28/18 03/28/18 03/28/18 19:21 19:21 19:53 WBC 16.0 H RBC 4.73 Hgb 13.0 Hct 40.3 MCV 85.3 MCH 27.5 MCHC 32.2 RDW 15.1 H Plt Count 386 MPV 7.1 L Neut # (Auto) 12.9 H Lymph # (Auto) 1.7 [place] # (Auto) 1.1 H Eos # (Auto) 0.2 Baso # (Auto) 0.1 Absolute Nucleated RBC 0.01 Nucleated RBC % 0.0 Sodium Potassium Chloride Carbon Dioxide Anion Gap BUN Creatinine Estimated GFR (MDRD) Glucose Calcium Total Bilirubin AST ALT Alkaline Phosphatase Total Protein Albumin Globulin Albumin/Globulin Ratio Lipase Urine Color YELLOW Urine Clarity CLEAR Urine pH 7.0 Ur Specific [place] 1.020 1.020 Urine Protein NEGATIVE Urine Glucose (UA) NEGATIVE Urine Ketones NEGATIVE Urine Occult Blood LARGE H Urine Nitrite NEGATIVE Urine Bilirubin NEGATIVE Urine Urobilinogen 0.2 (NORMAL) Ur Leukocyte Esterase TRACE H Urine RBC 11-25 H Urine WBC 6-10 H Urine WBC Clumps PRESENT Ur Squamous Epith Cells MANY Squamous H Urine Bacteria Few Ur Microscopic Review INDICATED Urine Culture Comments NOT INDICATED Urine HCG, Qual NEGATIVE 03/28/18 19:53 WBC RBC Hgb Hct MCV MCH MCHC RDW Plt Count MPV Neut # (Auto) Lymph # (Auto) [place] # (Auto) Eos # (Auto) Baso # (Auto) Absolute Nucleated RBC Nucleated RBC % Sodium 137 Potassium 3.8 Chloride 99 L Carbon Dioxide 31 Anion Gap 7.0 BUN 17 Creatinine 0.8 Estimated GFR (MDRD) 83 L Glucose 97 Calcium 9.1 Total Bilirubin 0.4 AST 19 ALT 21 Alkaline Phosphatase 109 Total Protein 7.5 Albumin 3.9 Globulin 3.6 Albumin/Globulin Ratio 1.1 Lipase 30 Urine Color Urine Clarity Urine pH Ur Specific [place] Urine Protein Urine Glucose (UA) Urine Ketones Urine Occult Blood Urine Nitrite Urine Bilirubin Urine Urobilinogen Ur Leukocyte Esterase Urine RBC Urine WBC Urine WBC Clumps Ur Squamous Epith Cells Urine Bacteria Ur Microscopic Review Urine Culture Comments Urine HCG, Qual - Rads (name of study) CT abd/pelvis Radiology: Prelim report reviewed, EMP read contemporaneously, See rad report (Resolution of previously seen right hydronephrosis. Tiny nonobstructing bi lateral calculi. 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 She does not appear septic. CT scan reveals no current evidence of ureterolithiasis. Urine culture is pending. Treatment in the emergency department included administration of ceftriaxone 1 g IV, fentanyl 50 mcg IV, Toradol 30 mg IV, and Zofran 4 mg IV. Her symptoms improved with the above treatment. She is being discharged with prescriptions for Cipro and for Vicodin, 14 tablets. 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 Departure - Departure Disposition: 01 Home, Self Care Clinical Impression: Pyelonephritis Condition: Stable Instructions: ED Kidney Infec Female Follow-Up: [facility] [Provider Group] Tamela Thompson MD [Physician No Access] - Prescriptions: Ciprofloxacin HCl [Cipro] 500 mg PO BID #14 tablet Hydrocodone/Acetaminophen [Hydrocodon-Acetaminophen 5-325] 1 - 2 each PO Q6H PRN #14 tablet PRN Reason: pain Promethazine [Phenergan] 25 mg PO Q6H PRN #10 tab PRN Reason: Nausea / Vomiting Comments: Drink plenty of fluids, including cranberry juice. Take Cipro twice daily as prescribed. You can use Vicodin as prescribed if needed for pain. Follow-up with your primary physician or your urologist within 1 week. Call to schedule appointment. Return to the emergency department if you develop increasing abdominal or flank pain, fever with shaking chills, persistent vomiting, or otherwise worsening symptoms. Forms: Activity restrictions Discharge Date/Time: 03/28/18 23:22
[2018-03-28] MEDS ORDERED: cefTRIAXone 1 GM in SODIUM CHLORIDE 0.9% MINIBAG 100 ML IV STA (22:33)
[2018-03-28 23:21] VITALS: BP 164/104
== END 2018-03-28 23:22 | disposition home or self-care (01) ==
LOC: ED 19:08
DX: N12 Tubulo-interstitial nephritis, not specified as acute or chronic (principal); Z87.442 Personal history of urinary calculi
CPT/HCPCS: 36415; 74176; 80053; 81001; 81003; 81025; 83690; 85025; 87086; 96365; 96375; 99283; 99284

== ENCOUNTER 2018-05-08 13:47 | Emergency (ER) | payer MEDICAID ==
[2018-05-08 13:54] VITALS: BP 147/110
[2018-05-08] MEDS ORDERED: HYDROcod/ACETAM 5/325 MG TABLET PO STA (13:59)
--- NOTE | 2018-05-08 14:00 | ED Physician Documentation ---
PD HPI LOWER EXT INJURY - Stated complaint Stated Complaint: R FOOT INJ - Chief complaint Chief Complaint: Ext Problem - History obtained from History obtained from: Patient - History of Present Illness PD HPI LOW EXT INJURY LOCATION: Right, Foot Type of injury: Blunt / blow (kicked something last night while playing hide and seek with her kids.) Where injury occurred: Home Timing - onset: Last night Review of Systems Constitutional: reports: Reviewed and negative Respiratory: reports: Reviewed and negative GI: reports: Reviewed and negative : denies: Now EGA PD PAST MEDICAL HISTORY - Past Medical History Cardiovascular: None Respiratory: None Endocrine/Autoimmune: None GI: None CONSTRUCTION CONSULTANT: None : Kidney stones HEENT: None Psych: None Musculoskeletal: None Derm: None - Past Surgical History Past Surgical History: Yes General: Appendectomy /CONSTRUCTION CONSULTANT: section - Present Medications Home Medications: Ambulatory Orders Medication Instructions Recorded Confirmed Albuterol Sulf [Ventolin Hfa 1 - 2 puffs INH Q4HR PRN #1 inhaler 05/14/17 05/30/17 Inhaler] Naproxen 375 mg PO BID #20 tablet 01/11/18 Ondansetron Odt [Zofran] 4 mg TL Q6H PRN #15 tablet 01/11/18 Promethazine [Phenergan] 25 mg PO Q6H PRN #10 tab 03/28/18 Hydrocodone/Acetaminophen 1 - 2 each PO Q6H PRN #10 tablet 05/08/18 [Hydrocodon-Acetaminophen 5-325] - Allergies Allergies/Adverse Reactions: Allergies Allergy/AdvReac Type Severity Reaction Status Date / Time aspirin Allergy Severe Respiratory Verified 01/17/18 21:06 Penicillins Allergy Severe Rash Verified 05/08/18 13:54 - Social History Does the pt smoke?: No Smoking Status: Never smoker Does the pt drink ETOH?: Yes Does the pt have substance abuse?: No - Immunizations Immunizations are current?: Yes - POLST Patient has POLST: No PD ED PE NORMAL - Vitals Vital signs reviewed: Yes - General General: Alert and oriented X 3, No acute distress - Extremities Extremities: Other (No visible deformity of the right foot, she is tender over the fifth metatarsal, and between the first and second metatarsals.) - Neuro Neuro: Alert and oriented X 3, Normal speech Results - Vitals Vitals: Vital Signs - 24 hr 05/08/18 13:49 Temperature 36.3 C L Heart Rate 88 Respiratory 18 Rate Blood Pressure 147/110 H O2 Saturation 100 Oxygen O2 Source Room air Departure - Departure Disposition: 01 Home, Self Care Clinical Impression: Contusion of right foot Qualifiers: Encounter type: initial encounter Qualified Code(s): S90.31XA - Contusion of right foot, initial encounter Condition: Good Record reviewed to determine appropriate education?: Yes Instructions: ED Contusion Foot Prescriptions: Hydrocodone/Acetaminophen [Hydrocodon-Acetaminophen 5-325] 1 - 2 each PO Q6H PRN #10 tablet PRN Reason: pain Comments: Your blood pressure was elevated today on check into the emergency department. This does not mean that you have hypertension, it is a common phenomenon to come to the emergency department and have elevated blood pressure. I recommend that you see your primary care physician within the week to have it rechecked when you are feeling better. Recheck with your doctor at the same time if you are still having persistent pain.
--- NOTE | 2018-05-08 14:26 | XRAY Report ---
Reason: foot inj Procedure Date: 05/08/2018 Accession Number: [id number] / [id number] Procedure: XR - Foot 3 View RT CPT Code: FULL RESULT: EXAM: RIGHT FOOT RADIOGRAPHY EXAM DATE: 05/08/2018 02:08 PM. CLINICAL HISTORY: Foot inj. COMPARISON: None. TECHNIQUE: 3 views. FINDINGS: Bones: Normal. No fractures or bone lesions. Joints: Normal. No subluxations. Soft Tissues: Normal. No soft tissue swelling. IMPRESSION: Normal foot radiography. RADIA
== END 2018-05-08 14:35 | disposition home or self-care (01) ==
LOC: ED 13:47
DX: S90.31XA Contusion of right foot, initial encounter (principal); W22.8XXA Striking against or struck by other objects, initial encounter; Y93.6A Activity, physical games generally associated with school recess, summer camp and children; Y92.830 Public park as the place of occurrence of the external cause; R03.0 Elevated blood-pressure reading, without diagnosis of hypertension
CPT/HCPCS: 73630; 99283; A9270

== ENCOUNTER 2018-07-03 09:13 | Emergency (ER) | payer MEDICAID ==
[2018-07-03 09:28] VITALS: BP 129/83
[2018-07-03] MEDS ORDERED: DEXAMETHASONE 10 MG/ML VIAL PO STA (10:36)
--- NOTE | 2018-07-03 10:39 | ED Physician Documentation ---
PD HPI URI - Stated complaint Stated Complaint: VOMITING/COUGH/BODY ACHES - Chief complaint Chief Complaint: Resp - History obtained from History obtained from: Patient, Family - History of Present Illness Timing - onset: How many days ago (3) Timing duration: Days (3) Timing details: Gradual onset, Still present Associated symptoms: Ear pain, Nasal congestion, Rhinorrhea, Sore throat, Swollen nodes, Productive cough, Dyspnea Contributing factors: Sick contact (4 children at home all sick with cough) Improves by: Rest Similar symptoms before: Diagnosis (OM) Recently seen: Not recently seen Review of Systems Constitutional: reports: Myalgias. denies: Fever, Chills Eyes: denies: Decreased vision Ears: reports: Ear pain Nose: reports: Rhinorrhea / runny nose, Congestion Throat: reports: Sore throat Cardiac: denies: Chest pain / pressure, Palpitations Respiratory: reports: Dyspnea, Cough GI: reports: Vomiting. denies: Abdominal Pain, Nausea : denies: Dysuria, Frequency PD PAST MEDICAL HISTORY - Past Medical History Past Medical History: Yes Cardiovascular: None Respiratory: None Endocrine/Autoimmune: None GI: None INCOME TAX INVESTIGATOR: None : Kidney stones HEENT: None Psych: None Musculoskeletal: None Derm: None - Past Surgical History Past Surgical History: Yes General: Appendectomy /INCOME TAX INVESTIGATOR: section - Present Medications Home Medications: Ambulatory Orders Medication Instructions Recorded Confirmed Albuterol Sulf [Ventolin Hfa 1 - 2 puffs INH Q4HR PRN #1 inhaler 05/14/17 05/30/17 Inhaler] Naproxen 375 mg PO BID #20 tablet 01/11/18 Ondansetron Odt [Zofran] 4 mg TL Q6H PRN #15 tablet 01/11/18 Promethazine [Phenergan] 25 mg PO Q6H PRN #10 tab 03/28/18 Hydrocodone/Acetaminophen 1 - 2 each PO Q6H PRN #10 tablet 05/08/18 [Hydrocodon-Acetaminophen 5-325] Amox/Clav 875/125 [Augmentin] 1 each PO Q12H #20 tablet 07/03/18 - Allergies Allergies/Adverse Reactions: Allergies Allergy/AdvReac Type Severity Reaction Status Date / Time aspirin Allergy Severe Respiratory Verified 07/03/18 09:28 Penicillins Allergy Severe Rash Verified 07/03/18 09:28 - Social History Does the pt smoke?: No Smoking Status: Never smoker Does the pt drink ETOH?: Yes Does the pt have substance abuse?: No - Immunizations Immunizations are current?: Yes - POLST Patient has POLST: No PD ED PE NORMAL - Vitals Vital signs reviewed: Yes (hypertensive ) - General General: Alert and oriented X 3, Well developed/nourished, Other (nasal quality to the voice) - HEENT HEENT: Atraumatic, PERRL, EOMI, Other (The left TM is inflamed with distortion of the landmarks. The right is clear. There is tonsillar swelling and minimal exudate. ) - Neck Neck: Supple, no meningeal sign, No bony TTP, Other (shoddy adenopathy on the left only. ) - Cardiac Cardiac: RRR, No murmur - Respiratory Respiratory: No respiratory distress, Clear bilaterally - Abdomen Abdomen: Soft, Non tender - Back Back: No CVA TTP, No spinal TTP - Derm Derm: Normal color, Warm and dry, No rash - Extremities Extremities: No deformity, No edema - Neuro Neuro: Alert and oriented X 3, fuel cell binder 2-12 intact, No motor deficit, No sensory deficit, Normal speech Eye Opening: Spontaneous Motor: Obeys Commands Verbal: Oriented GCS Score: 15 - Psych Psych: Normal mood, Normal affect Results - Vitals Vitals: Vital Signs - 24 hr 07/03/18 09:22 Temperature 36.6 C Heart Rate 91 Respiratory 20 Rate Blood Pressure 129/83 H O2 Saturation 98 Oxygen O2 Source Room air PD MEDICAL DECISION MAKING - ED course Complexity details: reviewed old records, reviewed results, re-evaluated patient, considered differential, d/w patient, d/w family ED course: 32-year-old female with cough and congestion times 3 days has left otitis media she is administered dexamethasone 10 mg orally and we will place her on some Augmentin. She has not used an inhaler previously she does have fair air movement with her lung. She is allergic to penicillin and says that she can take amoxicillin. Departure - Departure Disposition: 01 Home, Self Care Clinical Impression: Otitis media Qualifiers: Otitis media type: suppurative Chronicity: acute Laterality: left Recurrence: not specified as recurrent Spontaneous tympanic membrane rupture: without spontaneous rupture Qualified Code(s): H66.002 - Acute suppurative otitis media without spontaneous rupture of ear drum, left ear Condition: Stable Instructions: ED Otitis Media Acute Adult Follow-Up: [facility] [Provider Group] Prescriptions: Amox/Clav 875/125 [Augmentin] 1 each PO Q12H #20 tablet
[2018-07-03] MEDS ORDERED: CHERRY SYRUP 10 ML UDC PO ONE (10:47)
== END 2018-07-03 10:50 | disposition home or self-care (01) ==
LOC: ED 09:13
DX: H66.002 Acute suppurative otitis media without spontaneous rupture of ear drum, left ear (principal)
CPT/HCPCS: 99283; A9270

== ENCOUNTER 2019-07-31 15:43 | Emergency (ER) | payer MEDICAID ==
--- NOTE | 2019-07-31 16:15 | ED Physician Documentation ---
PD HPI NVD - Stated complaint Stated Complaint: FLU SX/ABD PX - Chief complaint Chief Complaint: Fever - History obtained from History obtained from: Patient - History of Present Illness Timing - onset: How many days ago (3) Timing - duration: Days (3 Days of illness with some crampy abdominal pains and diarrhea which is been watery and frequent. She also has general body aches and malaise with some coughing but no wheezing. Some sore throat and congestion. Her 2 sons have somewhat similar symptoms but not to the same degree. She does work at [employer] and is concerned about significant infections for which she should not be working. She states her supervisor [employer] asked that she be evaluated for significant infections prior to returning to work.) Timing - details: Abrupt onset, Still present Associated symptoms: Fever (mild), Abdominal pain (crampy intermittent), Loss of appetite, Other (diarrhea watery without blood nor mucous.). No: Near syncope / syncope Contributing factors: No: Sick contact, Bad food, Travel, Recent antibiotics Worsened by: Eating. No: Palpation Similar symptoms before: Has not had sx before Recently seen: Not recently seen Review of Systems Constitutional: reports: Fever, Chills, Myalgias Nose: reports: Congestion. denies: Rhinorrhea / runny nose Throat: denies: Sore throat Cardiac: denies: Chest pain / pressure Respiratory: reports: Dyspnea, Cough. denies: Wheezing GI: reports: Abdominal Pain, Nausea, Diarrhea. denies: Abdominal Swelling, Vomiting, Hematemesis, Bloody / black stool : denies: Dysuria, Frequency Neurologic: denies: Generalized weakness, Focal weakness, Numbness PD PAST MEDICAL HISTORY - Past Medical History Cardiovascular: None Respiratory: None Endocrine/Autoimmune: None GI: None APPEALS EXAMINER: None : Kidney stones HEENT: None Psych: None Musculoskeletal: None Derm: None - Past Surgical History Past Surgical History: Yes General: Appendectomy /APPEALS EXAMINER: section - Present Medications Home Medications: Ambulatory Orders Medication Instructions Recorded Confirmed Albuterol Sulf [Ventolin Hfa 1 - 2 puffs INH Q4HR PRN #1 inhaler 05/14/17 05/30/17 Inhaler] Naproxen 375 mg PO BID #20 tablet 01/11/18 Ondansetron Odt [Zofran] 4 mg TL Q6H PRN #15 tablet 01/11/18 Promethazine [Phenergan] 25 mg PO Q6H PRN #10 tab 03/28/18 Hydrocodone/Acetaminophen 1 - 2 each PO Q6H PRN #10 tablet 05/08/18 [Hydrocodon-Acetaminophen 5-325] Amox/Clav 875/125 [Augmentin] 1 each PO Q12H #20 tablet 07/03/18 Benzonatate [Tessalon Perle] 100 mg PO TID PRN #20 capsule 07/31/19 Diphenoxylate/Atropine [Lomotil] 1 each PO QID PRN #12 tablet 07/31/19 Ondansetron Odt [Zofran] 4 mg TL Q6H PRN #10 tablet 07/31/19 Oseltamivir [Tamiflu] 75 mg PO BID #10 capsule 07/31/19 - Allergies Allergies/Adverse Reactions: Allergies Allergy/AdvReac Type Severity Reaction Status Date / Time aspirin Allergy Severe Respiratory Verified 07/31/19 16:00 Penicillins Allergy Severe Rash Verified 07/31/19 16:00 - Social History Does the pt smoke?: No Smoking Status: Never smoker Does the pt drink ETOH?: Yes Does the pt have substance abuse?: No - Immunizations Immunizations are current?: Yes - POLST Patient has POLST: No PD ED PE NORMAL - Vitals Vital signs reviewed: Yes - General General: Alert and oriented X 3, No acute distress, Well developed/nourished - HEENT HEENT: Ears normal, Moist mucous membranes, Pharynx benign - Neck Neck: Supple, no meningeal sign, No adenopathy - Cardiac Cardiac: RRR, No murmur - Respiratory Respiratory: Clear bilaterally - Abdomen Abdomen: Soft, Non tender, Non distended, No organomegaly. No: Normal bowel sounds (diminished) - Back Back: No CVA TTP - Derm Derm: Normal color, Warm and dry - Extremities Extremities: Normal ROM s pain, No edema, No calf tenderness / cord - Neuro Neuro: Alert and oriented X 3, No motor deficit, Normal speech Results - Vitals Vitals: Vital Signs - 24 hr 07/31/19 07/31/19 15:56 17:52 Temperature 36.8 C Heart Rate 93 71 Respiratory 16 18 Rate Blood Pressure 184/122 H 155/102 H O2 Saturation 97 100 Oxygen O2 Source Room air - Labs Labs: Laboratory Tests 07/31/19 07/31/19 16:40 17:16 Stl C. diff Tox B Gene NEGATIVE Influenza A (Rapid) Negative Influenza B (Rapid) POSITIVE H PD MEDICAL DECISION MAKING - ED course Complexity details: reviewed results (Positive for influenza B. Most likely she only has one illness and so we will treat her for the flu. She is only sick a couple of days and does work at a [employer] so adding the Tamiflu could be reasonable. Otherwise symptom medications for nausea diarrhea and cough. Other results are still pending. We will give her a note for 4 to 5 days off work as she is already been sick for 2 but really may return to work when she is afebrile and not having feeling ill coughing or diarrhea.), considered differential (Most likely has a simple viral illness. However concern would be for more significant process or when that may be longer lasting such as flu or c oronavirus based on the cough fevers and some GI symptoms. This would be of importance since he does work in a [employer]. Regarding the diarrhea, C. difficile would be of concern and so we can test for these above processes. Meanwhile would have her off work likely 3 days or so pending some test results and she is sick currently so we will add least need a few days. We will treat for the nausea and diarrhea as well as cough with symptom medicines.), d/w patient Departure - Departure Disposition: 01 Home, Self Care Clinical Impression: Influenza, Cough Fever Qualifiers: Fever type: unspecified Qualified Code(s): R50.9 - Fever, unspecified Diarrhea Qualifiers: Diarrhea type: presumed infectious Qualified Code(s): R19.7 - Diarrhea, unspeci fied Condition: Stable Record reviewed to determine appropriate education?: Yes Instructions: ED Flu Prescriptions: Benzonatate [Tessalon Perle] 100 mg PO TID PRN #20 capsule PRN Reason: Cough Diphenoxylate/Atropine [Lomotil] 1 each PO QID PRN #12 tablet PRN Reason: Diarrhea Ondansetron Odt [Zofran] 4 mg TL Q6H PRN #10 tablet PRN Reason: Nausea / Vomiting Oseltamivir [Tamiflu] 75 mg PO BID #10 capsule Comments: Tamiflu twice daily for 5 days to reduce the degree of viral illness. I would ondansetron if needed for nausea. Lomotil for diarrhea. You can use Tessalon if needed for cough. Stay well-hydrated. Tylenol or ibuprofen for fevers and pains. You do have influenza B. We can try to blunt this with the Tamiflu. You likely still be sick enough for the next 4 to 5 days to not be able to work. Return to work when you have not had significant cough diarrhea or fevers for least 24 hours. Check with your supervisor [employer] before returning. It is unlikely they have more than 1 illness but the results for the [place] it and C. difficile should result in the next couple of days. Forms: Activity restrictions Discharge Date/Time: 07/31/19 17:56
[2019-07-31] MEDS ORDERED: DIPHENOX/ATROPINE 2.5/0.025 MG TABLET PO STA (16:29)
[2019-07-31] MEDS ORDERED: ONDANSETRON ODT 4 MG TABLET TL STA (16:29)
[2019-07-31] MEDS ORDERED: ACETAMINOPHEN 325 MG TABLET PO STA (16:29)
[2019-07-31] MEDS ORDERED: BENZONATATE 100 MG CAPSULE PO STA (16:29)
[2019-07-31] MEDS ORDERED: OSELTAMIVIR 75 MG CAPSULE PO STA (17:43)
[2019-07-31 17:52] VITALS: BP 155/102
== END 2019-07-31 17:56 | disposition home or self-care (01) ==
LOC: ED 15:43
DX: J10.1 Influenza due to other identified influenza virus with other respiratory manifestations (principal)
CPT/HCPCS: 81599; 87275; 87276; 87493; 99284; A9270; Q0162

== ENCOUNTER 2020-08-29 21:24 | Emergency (ER) | payer MEDICAID ==
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
[2020-08-29] MEDS ORDERED: DOXYCYCLINE 100 MG TABLET PO STA (22:41)
[2020-08-29 22:52] VITALS: BP 140/90
== END 2020-08-29 22:51 | disposition home or self-care (01) ==
LOC: ED 21:24
DX: L03.114 Cellulitis of left upper limb (principal); S60.812A Abrasion of left wrist, initial encounter; W45.8XXA Other foreign body or object entering through skin, initial encounter
CPT/HCPCS: 99282; 99283; A9270

== ENCOUNTER 2020-12-01 12:09 | Emergency (ER) | payer MEDICAID ==
--- NOTE | 2020-12-01 12:57 | ED Physician Documentation ---
History of Present Illness - Stated complaint Stated Complaint: SOA/WEAKNESS - Chief complaint Chief Complaint: Resp - History obtained from History obtained from: Patient - History of Present Illness Timing: Last night Pain level max: 0 Pain level now: 0 - Additonal information Additional information: Patient is a 35-year-old female who presents to the emergency department stating she had a positive Covid test last night and has a dry cough today. Body aches, chills and lack of taste. She is unvaccinated. She states she has children at home. Nothing makes it better or worse. 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 : Kidney stones HEENT: None Psych: None Musculoskeletal: None Derm: None - Past Surgical History Past Surgical History: Yes General: Appendectomy /SALES CENTER MANAGER: section - Present Medications Home Medications: Ambulatory Orders Medication Instructions Recorded Confirmed Albuterol Sulf [Ventolin Hfa 1 - 2 puffs INH Q4HR PRN #1 inhaler 05/14/17 05/30/17 Inhaler] Naproxen 375 mg PO BID #20 tablet 01/11/18 Ondansetron Odt [Zofran] 4 mg TL Q6H PRN #15 tablet 01/11/18 Promethazine [Phenergan] 25 mg PO Q6H PRN #10 tab 03/28/18 Hydrocodone/Acetaminophen 1 - 2 each PO Q6H PRN #10 tablet 05/08/18 [Hydrocodon-Acetaminophen 5-325] Amox/Clav 875/125 [Augmentin] 1 each PO Q12H #20 tablet 07/03/18 Benzonatate [Tessalon Perle] 100 mg PO TID PRN #20 capsule 07/31/19 Diphenoxylate/Atropine [Lomotil] 1 each PO QID PRN #12 tablet 03/15/20 Ondansetron Odt [Zofran] 4 mg TL Q6H PRN #10 tablet 07/31/19 Oseltamivir [Tamiflu] 75 mg PO BID #10 capsule 07/31/19 Doxycycline Hyclate [Vibramycin] 100 mg PO BID #20 cap 08/29/20 Benzonatate [Tessalon] 200 mg PO TID PRN #30 cap 12/01/20 - Allergies Allergies/Adverse Reactions: Allergies Allergy/AdvReac Type Severity Reaction Status Date / Time aspirin Allergy Severe Respiratory Verified 12/01/20 12:13 Penicillins Allergy Severe Rash Verified 12/01/20 12:13 - Social History Does the pt smoke?: No Smoking Status: Never smoker Does the pt drink ETOH?: Yes Does the pt have substance abuse?: No - Immunizations Immunizations are current?: Yes - POLST Patient has POLST: No PD ED PE NORMAL - Vitals Vital signs reviewed: Yes - General General: Alert and oriented X 3, No acute distress - HEENT HEENT: PERRL, Moist mucous membranes - Neck Neck: Supple, no meningeal sign - Cardiac Cardiac: RRR, Strong equal pulses - Respiratory Respiratory: No respiratory distress, Clear bilaterally - Abdomen Abdomen: Soft, Non tender, Non distended - Derm Derm: Warm and dry, No rash - Extremities Extremities: No edema, No calf tenderness / cord - Neuro Neuro: Alert and oriented X 3 - Psych Psych: Normal mood, Normal affect Results - Vitals Vitals: Vital Signs - 24 hr 12/01/20 12/01/20 12:14 12:54 Temperature 36.5 C 36.9 C Heart Rate 69 73 Respiratory 18 12 Rate Blood Pressure 170/100 H 161/116 H O2 Saturation 98 99 Oxygen O2 Source Room air PD MEDICAL DECISION MAKING - ED course Complexity details: reviewed results, considered differential, d/w patient ED course: Patient known positive for COVID-19. No hypoxia. No respiratory distress. No indication for hospitalization. We did discuss Bamlanivimab and Etesevimab treatment, patient declines both of these. Patient is well-appearing, nontoxic. Recommend that she quarantine from others until her symptoms have resolved. We will prescribe cough medication for home and have her follow-up with her doctor. Patient counseled regarding signs and symptoms for which I believe and urgent re-evaluation would be necessary. Patient with good understanding of and agreement to plan and is comfortable going home at this time This document was made in part using voice recognition software. While efforts are made to proofread this document, sound alike and grammatical errors may occur. Departure - Departure Disposition: 01 Home, Self Care Clinical Impression: COVID Condition: Good Instructions: COVID-19 [facility], COVID-19 [facility] Statement Follow-Up: your,doctor as needed. [Other] Prescriptions: Benzonatate [Tessalon] 200 mg PO TID PRN #30 cap PRN Reason: Cough Comments: Go home and rest. You need to quarantine yourself until your symptoms have resolved as you had a positive home Covid test. Drink plenty of fluids and rest. Your cough medication was sent to [facility] in [place]. This needs to be picked up by someone else. You need to stay at home. We did discuss the treatment of the bamlanivimab and the etesevimab treatment today, you have declined this today.
[2020-12-01 12:58] VITALS: BP 161/116
[2020-12-01 13:40] LABS: CORONAVIRUS 229E-RESP PCR NOT DETECTED; CORONAVIRUS HKU1-RESP PCR NOT DETECTED; CORONAVIRUS NL63-RESP PCR NOT DETECTED; CORONAVIRUS OC43-RESP PCR NOT DETECTED
[2020-12-01 13:42] LABS: B. PARAPERTUSSIS- RESP PCR PAN NOT DETECTED; B. PERTUSSIS- RESP PCR PANEL NOT DETECTED; C. PNEUMONIAE- RESP PCR PANEL NOT DETECTED; HUMAN METAPNEUMOVIRUS NOT DETECTED; INFLUENZA A- RESP PCR PANEL NOT DETECTED; INFLUENZA B - RESP PCR PANEL NOT DETECTED; M. PNEUMONIAE- RESP PCR PANEL NOT DETECTED; PARAINFLUENZA VIRUS 1 NOT DETECTED; PARAINFLUENZA VIRUS 2 NOT DETECTED; PARAINFLUENZA VIRUS 3 NOT DETECTED; PARAINFLUENZA VIRUS 4 NOT DETECTED; RHINOVIRUS/ENTEROVIRUS NOT DETECTED; RSV- RESP PCR PANEL NOT DETECTED; SARS-CoV-2 -RESP PCR PANEL DETECTED
== END 2020-12-01 13:05 | disposition home or self-care (01) ==
LOC: ED 12:09
DX: U07.1 COVID-19 (principal)
CPT/HCPCS: 0202U; 99283; 99284

== ENCOUNTER 2020-12-10 19:16 | Emergency (ER) | payer MEDICAID ==
[2020-12-10] MEDS ORDERED: TETANUS/DIPHTHERIA/PERTUSSIS 0.5 ML SYRINGE IM ONE (19:33)
[2020-12-10] MEDS ORDERED: BUFFERED LIDOCAINE 10 ML SYRINGE SUBQ STA (19:33)
[2020-12-10] MEDS ORDERED: ROPIVACAINE 0.5% PF 20 ML AMPULE SUBQ STA (19:36)
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
--- NOTE | 2020-12-10 20:09 | XRAY Report ---
PROCEDURE: Hand 3 View RT INDICATIONS: hand inj TECHNIQUE: 3 views of the hand acquired. COMPARISON: None. FINDINGS: Bones: No acute fractures or dislocations. No suspicious bony lesions. Soft tissues: No suspicious soft tissue calcifications. No radiopaque foreign body. Soft tissue francesca ma is seen at the dorsum of the hand. IMPRESSION: No acute osseous abnormality. No radiopaque foreign body. If there is clinical concern or persistent symptoms, additional imaging such as repeat radiographs or advanced imaging (e.g. CT, MRI) may be hel pful for further evaluation. Reviewed by: Lee Doshi MD on 12/10/2020 8:07 PM PDT Approved by: Lee Doshi MD on 12/10/2020 8:07 PM PDT Station ID: [id number]
[2020-12-10 20:51] VITALS: BP 123/97
== END 2020-12-10 21:13 | disposition home or self-care (01) ==
LOC: ED 19:16
DX: S61.411A Laceration without foreign body of right hand, initial encounter (principal); W34.110A Accidental malfunction of airgun, initial encounter; Y93.89 Activity, other specified
CPT/HCPCS: 12002; 99282; 99283

== ENCOUNTER 2022-08-04 10:37 | Emergency (ER) | payer MEDICAID ==
[2022-08-04 10:49] VITALS: BP 177/125
[2022-08-04] MEDS ORDERED: DOXYCYCLINE 100 MG TABLET PO STA (12:43)
--- NOTE | 2022-08-04 12:46 | ED Physician Documentation ---
History of Present Illness - Stated complaint Stated Complaint: LT FT PX - Chief complaint Chief Complaint: Ext Problem - Additonal information Additional information: 36-year-old female presents emergency department for evaluation of pain and swelling erythema and induration to the distal left foot. Reports that she typically wears tennis shoes. Yesterday evening she noticed that the distal foot and toes were little swollen and red and mildly tender but did not think much of it when she woke up this morning there was significant swelling on the dorsum of the foot. Denies any falls or trauma. No fevers. Denies any history of injection drug use. Denies a history of diabetes does not take any prescribed medications. States the pain limits her ability to walk. 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 : Kidney stones HEENT: None Psych: None Musculoskeletal: None Derm: None - Past Surgical History Past Surgical History: Yes General: Appendectomy /PEST CONTROL WORKER: section - Present Medications Home Medications: Ambulatory Orders Medication Instructions Recorded Confirmed Doxycycline Hyclate 100 mg PO BID #14 cap 08/04/22 - Allergies Allergies/Adverse Reactions: Allergies Allergy/AdvReac Type Severity Reaction Status Date / Time aspirin Allergy Severe Respiratory Verified 08/04/22 10:49 Penicillins Allergy Severe Rash Verified 08/04/22 10:49 - Social History Does the pt smoke?: No Smoking Status: Never smoker Does the pt drink ETOH?: Yes Does the pt have substance abuse?: Yes - Immunizations Immunizations are current?: Yes - POLST Patient has POLST: No PD ED PE EXPANDED - General General: Alert, No acute distress, Disheveled, poorly kept - Cardiac Cardiac: Regular Rate, Radial strong equal, Pedal strong equal, Cap refill < 2 sec. No: Murmur Present - Abdomen Abdomen: No: Tender to palpation - Extremities Extremities: Left foot (Swelling erythema induration to the dorsum of the left foot including the great toe and all toes. 2+ distal pulse. No fluctuance. No red streaking. Swelling and erythema does not extend beyond the dorsum of the foot. No ankle pain calf swelling pain or tenderness. No obvious sores/lesions), Pedal Pulses Present. No: Left calf TTP/cord - Neuro Neuro: Alert and Oriented X 3, CNII-XII intact - GCS Eye Opening: Spontaneous Motor: Obeys Commands Verbal: Oriented Total: 15 Results - Vitals Vitals: Vital Signs - 24 hr 08/04/22 10:44 Temperature 36.4 C L Heart Rate 100 Respiratory 18 Rate Blood Pressure 177/125 H O2 Saturation 99 Oxygen O2 Source Room air - Rads (name of study) left foot xr Relevant Findings:: EMP independent interpretation of test PD Medical Decision Making - ED course Complexity details: reviewed results, re-evaluated patient, considered differential, d/w patient ED course: 36-year-old female presents emergency department for evaluation acute left distal foot swelling that began last night in the absence of trauma or obvious sores or lesions. Clinically the foot is indurated and erythematous most consistent with an early cellulitis. No fluctuance to suggest abscess formation. Based on the location and the history I am also not suspicious for a DVT. Patient has no risk factors for DVT. An x-ray completed of the foot per my interpretation shows no acute fractures or dislocation. As such I will start her on empiric treatment for left foot cellulitis with doxycycline to provide both good staph and strep coverage. I have advised the patient to soak the foot once or twice daily in warm Epsom salt or use warm compress. We have outlined the area of erythema on the foot and discussed the usual emergent return precautions for failure of symptoms to resolve. Departure - Departure Disposition: 01 Home, Self Care Clinical Impression: Cellulitis of left foot Condition: Stable Record reviewed to determine appropriate education?: Yes Instructions: Cellulitis Dc Prescriptions: Doxycycline Hyclate 100 mg PO BID #14 cap Comments: Sylvia you seen today in the emergency department because last night you began having some pain and swelling on the top of your foot including your toes. This appears to be an early cellulitis or skin infection though I do not have a clear reason why this could have occurred. In order to treat this I would like you to fill the prescription for the doxycycline and take twice daily for the next [address] a warm compress over the foot for 10 minutes 2-3 times a day or alternatively soak it in an absents foot bath for 10 minutes also 2-3 times a day. We have outlined the area of redness on your foot. With about 24 to 48 hours of antibiotics I would expect the redness to be improving as well as the pain. In general I recommend that you take ibuprofen or Tylenol [id number] for discomfort. We are dispensing some crutches to help you walk. If you find that your symptoms are worsening despite the antibiotics, you develop any fevers have streaking of redness up the foot or leg then please return immediately to the ER for second evaluation
--- NOTE | 2022-08-04 13:20 | XRAY Report ---
PROCEDURE: Foot 2 View LT INDICATIONS: redness and swelling TECHNIQUE: 2 views of the foot were acquired. COMPARISON: None FINDINGS: Bones: No fractures or dislocations. No suspicious bony lesions. First MTP head bony bunion. Soft tissues: No tibiotalar joint effusion. Achilles tendon appears normal. IMPRESSION: No acute bony abnormality. Reviewed by: Bryan Mcwilliams on 08/04/2022 1:19 PM PDT Approved by: Bryan Mcwilliams on 08/04/2022 1:19 PM PDT Station ID: [id number]
== END 2022-08-04 13:13 | disposition home or self-care (01) ==
LOC: ED 10:37
DX: L03.116 Cellulitis of left lower limb (principal)
CPT/HCPCS: 73620; 99283; 99284; A9270

== ENCOUNTER 2023-01-06 15:27 | Outpatient (CLI) | payer MEDICAID, OTHER | END 2023-01-06 23:59 | disposition EMS.NT | LOC: EMS 15:27 | DX: Z04.1 Encounter for examination and observation following transport accident (principal) ==

== ENCOUNTER 2023-08-24 13:57 | Emergency (ER) | payer MEDICAID ==
[2023-08-24 14:28] VITALS: BP 184/120; O2SAT 100
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
--- NOTE | 2023-08-24 15:26 | XRAY Report ---
PROCEDURE: Elbow 3+V RT INDICATIONS: elbow inj TECHNIQUE: 3 views of the elbow were acquired. COMPARISON: None. FINDINGS: Bones: No fractures or dislocations. No suspicious bony lesions. Soft tissues: Minimal effusion. No suspicious soft tissue calcifications or masses. IMPRESSION: Minimal effusion. No visualized acute fracture or dislocation. However, occult injury cannot be exclu ded. Recommend short interval imaging follow-up in 7-10 days as clinically indicated for additional e valuation. Reviewed by: Jazmin Quintanilla MD on 08/24/2023 3:24 PM PDT Approved by: Jazmin Quintanilla MD on 08/24/2023 3:24 PM PDT Station ID: [id number]
== END 2023-08-24 15:08 | disposition home or self-care (01) ==
LOC: ED 13:57
DX: S46.811A Strain of other muscles, fascia and tendons at shoulder and upper arm level, right arm, initial encounter (principal); X58.XXXA Exposure to other specified factors, initial encounter
CPT/HCPCS: 99283; 99284